=== PATIENT | female | born 1930 | race Asian ===

== ENCOUNTER 2016-04-15 08:15 | Inpatient (IN) | payer MEDICARE, OTHER ==
[~2016-04-15] VITALS: Ht 160 cm; Wt 55.4 kg
[~2016-04-15 08:15] MED LIST: ASPI-825 PO; BENZ-26 PO; DICL1OS OU; DSS100 PO; FISH OIL OMEGA1 EACH PO; FURO20 PO; HYDR50 PO; LEVO250 PO; LEVO75 PO; METF500T4 PO; MOME13HF2 IH; MONT10TA21 PO; PANT40TA25 PO
[2016-04-15 08:42] LABS: BASOPHILS % (AUTO) 0.4 % (0.0-2.0); EOSINOPHILS % (AUTO) 1.8 % (1.0-6.0); HEMATOCRIT 35.1 % (36-46); HEMOGLOBIN 10.8 g/dL (12.0-16.0); LYMPHOCYTES # (AUTO) 1.7 K/uL (1.0-4.8); LYMPHOCYTES % (AUTO) 21.3 % (22.0-44.0); MEAN CORPUSCULAR HEMOGLOBIN 22.3 pg (26.0-34.0); MEAN CORPUSCULAR HGB CONC 30.8 G/dL (31.0-37.0); MEAN CORPUSCULAR VOLUME 73 fL (80-100); MONOCYTES # (AUTO) 0.9 K/uL (0.1-1.0); NEUTROPHILS # (AUTO) 5.3 K/uL (1.8-7.7); NEUTROPHILS % (AUTO) 65.5 % (40.0-70.0); PLATELET COUNT (AUTO) 204 K/uL (150-450); RED BLOOD CELL COUNT(AUTO) 4.84 MIL/uL (4.00-5.20); RED CELL DISTRIBUTION WIDTH 14.6 % (11.5-14.5); WHITE BLOOD COUNT (AUTO) 8.2 K/uL (4.5-11.0)
[2016-04-15 08:52] LABS: PROTHROMBIN TIME 10.2 SEC (9.4-11.6)
[2016-04-15 08:59] LABS: ANION GAP 9 mmol/L (8-16); CALCIUM, TOTAL 9.2 mg/dL (8.8-10.5); CARBON DIOXIDE 31 mmol/L (22-29); CHLORIDE 95 mmol/L (98-107); CREATININE 1.32 mg/dL (0.60-1.30); GLOMERULAR FILTR. RATE CALC 38 mL/min (>60); POTASSIUM 4.2 mmol/L (3.5-5.1); SODIUM SERUM 135 mmol/L (136-145); UREA NITROGEN, BLOOD 25 mg/dL (7-18)
[2016-04-15 09:17] LABS: B-TYPE NATRIURETIC PEPTIDE 440 pg/mL (0-100)
[2016-04-15 09:23] LABS: ALANINE AMINOTRANSFERASE 15 U/L (12-78); ALBUMIN 3.5 g/dL (3.4-5.0); ASPARTATE AMINOTRANSFERASE 19 U/L (15-37); BILIRUBIN,TOTAL 0.4 mg/dL (0.1-1.0); CREATINE KINASE MB 1.4 ng/mL (0-5); CREATINE KINASE, TOTAL 81 U/L (26-192); TOTAL PROTEIN, SERUM 7.7 g/dL (6.4-8.2)
[2016-04-15 09:36] LABS: APPEARANCE,URINE CLEAR (CLEAR); GLUCOSE, URINE (UA) 250 mg/dL (NEGATIVE); KETONES,URINE NEGATIVE (NEGATIVE); LEUKOCYTE ESTERASE ,URINE NEGATIVE (NEGATIVE); OCCULT BLOOD,URINE NEGATIVE (NEGATIVE); PH,URINE 6.5 (5.0-8.0); PROTEIN,URINE POS 1+ (NEGATIVE)
[2016-04-15 09:39] LABS: ADD UA MICROSCOPIC YES
[2016-04-15 09:47] LABS: RBC,URINE None Seen /HPF (0-2); TRANSITIONAL EPI CELLS,URINE Rare /LPF (None Seen); WBC,URINE 0-2 /HPF (0-5)
[2016-04-15 09:48] LABS: SQUAMOUS EPITHELIAL CELL,UR Rare /LPF (None Seen)
[2016-04-15] MEDS ORDERED: INSULIN REGULAR, HUMAN 100 UNITS/ML SQ ONE (12:00)
[2016-04-15] MEDS ORDERED: HydrALAZINE HCL 25 MG TABLET PO ONE (13:15)
[2016-04-15] MEDS ORDERED: NITROGLYCERIN 2% (1 GM=INCH) PACKET TP ONE (15:45)
[2016-04-15] MEDS ORDERED: CloNIDine HCL 0.2 MG TABLET PO ONE (15:45)
[2016-04-15 17:26] LABS: GLUCOSE,POINT OF CARE 187 MG/DL (70-110)
[2016-04-15] MEDS ORDERED: ACETAMINOPHEN 325 MG TABLET PO PRN (18:30)
[2016-04-15] MEDS ORDERED: ALBUTEROL SULFATE 2.5 MG/0.5 ML NEB SOLUTION NEB PRN (18:30)
[2016-04-15] MEDS ORDERED: ZOLPIDEM TARTRATE 5 MG TABLET PO PRN (18:30)
[2016-04-15] MEDS ORDERED: DEXTROSE 50%-WATER 25 GM/50 ML SYRINGE IVP PRN (18:30)
[2016-04-15] MEDS: HydrALAZINE HCL 20 MG/ML VIAL IVP PRN (18:37)
[2016-04-15] MEDS: ALBUTEROL SULFATE 2.5 MG/0.5 ML NEB SOLUTION NEB SCH (20:00)
[2016-04-15 20:16] VITALS: BP 180/58
[2016-04-15] MEDS: GuaiFENesin/D-METHORPHAN [SUGAR-FREE] 200-20MG/10 ML SYRUP UDCUP PO PRN (23:30)
[2016-04-16] VITALS (7 sets, daily range): BP systolic 134–197; BP diastolic 48–76
[2016-04-16] MEDS: HEPARIN SODIUM,PORCINE 5,000 UNITS/ML VIAL SQ SCH ×3 (00:02→16:00)
[2016-04-16] MEDS: INSULIN ASPART 100 UNITS/ML SQ PRN ×5 (00:04→23:02)
[2016-04-16] MEDS: HydrALAZINE HCL 20 MG/ML VIAL IVP PRN ×2 (00:41→06:05)
[2016-04-16] MEDS: OxyCODONE HCL/ACETAMINOPHEN 5-325 MG TABLET PO PRN ×3 (01:14→22:49)
[2016-04-16] MEDS ORDERED: 0.9% SODIUM CHLORIDE 5 ML NEB SOLUTION NEB ONE ×3 (05:03→20:16)
[2016-04-16] MEDS: ALBUTEROL SULFATE 2.5 MG/0.5 ML NEB SOLUTION NEB SCH ×4 (05:10→20:21)
[2016-04-16] MEDS: LEVOTHYROXINE SODIUM 75 MCG TABLET PO SCH (06:05)
[2016-04-16] MEDS: ONDANSETRON HCL 4 MG/2 ML VIAL IVP PRN ×2 (06:35→11:35)
[2016-04-16] MEDS ORDERED: ASPIRIN 81 MG CHEWABLE TABLET PO SCH (09:00)
[2016-04-16 09:48] LABS: BASOPHILS # (AUTO) 0.01 K/uL (0.00-0.20); BASOPHILS % (AUTO) 0.1 % (0.0-2.0); EOSINOPHILS # (AUTO) 0.02 K/uL (0.00-0.70); EOSINOPHILS % (AUTO) 0.13 % (1.0-6.0); HEMATOCRIT 35.7 % (36-46); HEMOGLOBIN 11.4 g/dL (12.0-16.0); LYMPHOCYTES # (AUTO) 0.6 K/uL (1.0-4.8); LYMPHOCYTES % (AUTO) 3.8 % (22.0-44.0); MEAN CORPUSCULAR HEMOGLOBIN 22.7 pg (26.0-34.0); MEAN CORPUSCULAR VOLUME 71 fL (80-100); MONOCYTES # (AUTO) 1.3 K/uL (0.1-1.0); MONOCYTES % (AUTO) 7.7 % (2.0-9.0); PLATELET COUNT (AUTO) 234 K/uL (150-450); RED BLOOD CELL COUNT(AUTO) 5.03 MIL/uL (4.00-5.20); RED CELL DISTRIBUTION WIDTH 15.4 % (11.5-14.5)
[2016-04-16 09:50] LABS: NEUTROPHILS % (AUTO) 88.3 % (40.0-70.0)
[2016-04-16 09:59] LABS: CALCIUM, TOTAL 9.5 mg/dL (8.8-10.5); CREATININE 1.41 mg/dL (0.60-1.30); POTASSIUM 3.4 mmol/L (3.5-5.1)
[2016-04-16 10:16] LABS: RBC MORPHOLOGY COMMENT ABNORMAL RBC MORPH
[2016-04-16] MEDS: FUROSEMIDE 20 MG TABLET PO SCH (12:45)
[2016-04-16] MEDS: MetFORMIN HCL 500 MG TABLET PO SCH ×2 (12:45→18:26)
[2016-04-16] MEDS: DOCUSATE SODIUM 100 MG CAPSULE PO SCH ×2 (12:45→21:09)
[2016-04-16] MEDS: HydrALAZINE HCL 50 MG TABLET PO SCH ×3 (12:45→21:09)
[2016-04-16] MEDS: MONTELUKAST SODIUM 10 MG TABLET PO SCH (12:46)
[2016-04-16] MEDS: PANTOPRAZOLE SODIUM 40 MG DR TABLET PO SCH (12:46)
[2016-04-16] MEDS ORDERED: POTASSIUM CHLORIDE 20 MEQ ER TABLET PO PRN (13:45)
[2016-04-16] MEDS ORDERED: POTASSIUM CHL 10 MEQ/WATER 50 ML IV PRN (13:45)
[2016-04-16] MEDS ORDERED: PROMETHAZINE HCL 25 MG TABLET PO PRN (13:45)
[2016-04-16] MEDS ORDERED: DILTIAZEM HCL 5 MG/ML 5 ML VIAL IVP ONE (14:15)
[2016-04-16] MEDS: SODIUM CHLORIDE 0.9% 1,000 ML IV SCH (14:35)
[2016-04-16] MEDS ORDERED: DIGOXIN 250 MCG/ML 2 ML AMP IVP ONE (17:45)
[2016-04-16] MEDS ORDERED: AMIODARONE HCL 150 MG in DEXTROSE 5%-WATER 97 ML IV ONE (17:45)
[2016-04-16] MEDS ORDERED: AMIODARONE HCL 360 MG in DEXTROSE 5%-WATER 242.8 ML IV ONE (17:45)
[2016-04-16] MEDS ORDERED: AMIODARONE HCL 540 MG in DEXTROSE 5%-WATER 239.2 ML IV ONE (23:45)
[2016-04-17] VITALS (8 sets, daily range): BP systolic 148–198; BP diastolic 56–99
[2016-04-17] MEDS: HEPARIN SODIUM,PORCINE 5,000 UNITS/ML VIAL SQ SCH ×2 (00:02→08:40)
[2016-04-17] MEDS ORDERED: 0.9% SODIUM CHLORIDE 5 ML NEB SOLUTION NEB ONE ×4 (02:09→19:08)
[2016-04-17] MEDS: ALBUTEROL SULFATE 2.5 MG/0.5 ML NEB SOLUTION NEB SCH ×4 (02:14→20:00)
[2016-04-17] MEDS: SODIUM CHLORIDE 0.9% 1,000 ML IV SCH ×2 (04:37→16:33)
[2016-04-17 05:47] LABS: GLUCOSE COMMENT 1 Received Meds; GLUCOSE,POINT OF CARE 347 MG/DL (70-110)
[2016-04-17 05:48] LABS: GLUCOSE COMMENT 1 Received Meds; GLUCOSE,POINT OF CARE 279 MG/DL (70-110)
[2016-04-17 05:48] LABS: GLUCOSE COMMENT 1 Received Meds; GLUCOSE,POINT OF CARE 382 MG/DL (70-110)
[2016-04-17 05:48] LABS: GLUCOSE,POINT OF CARE 256 MG/DL (70-110)
[2016-04-17] MEDS: LEVOTHYROXINE SODIUM 75 MCG TABLET PO SCH (05:54)
[2016-04-17] MEDS: INSULIN ASPART 100 UNITS/ML SQ PRN ×4 (05:57→21:00)
[2016-04-17] MEDS: HydrALAZINE HCL 20 MG/ML VIAL IVP PRN ×2 (05:58→12:23)
[2016-04-17 07:10] LABS: ALBUMIN 2.9 g/dL (3.4-5.0); BILIRUBIN,TOTAL 0.6 mg/dL (0.1-1.0); CREATININE 1.04 mg/dL (0.60-1.30); TOTAL PROTEIN, SERUM 6.3 g/dL (6.4-8.2)
[2016-04-17] MEDS: MetFORMIN HCL 500 MG TABLET PO SCH ×2 (08:35→18:35)
[2016-04-17] MEDS: HydrALAZINE HCL 50 MG TABLET PO SCH ×3 (08:37→20:55)
[2016-04-17] MEDS: PANTOPRAZOLE SODIUM 40 MG DR TABLET PO SCH (08:38)
[2016-04-17] MEDS: DOCUSATE SODIUM 100 MG CAPSULE PO SCH ×2 (08:38→20:55)
[2016-04-17] MEDS: MONTELUKAST SODIUM 10 MG TABLET PO SCH (08:38)
[2016-04-17] MEDS: FUROSEMIDE 20 MG TABLET PO SCH (08:38)
[2016-04-17] MEDS: OxyCODONE HCL/ACETAMINOPHEN 5-325 MG TABLET PO PRN (10:12)
[2016-04-17] MEDS: APIXABAN 2.5 MG TABLET PO SCH ×2 (12:23→20:55)
[2016-04-17 15:27] LABS: GLUCOSE COMMENT 1 Received Meds; GLUCOSE,POINT OF CARE 279 MG/DL (70-110)
[2016-04-17] MEDS ORDERED: AMIODARONE HCL 750 MG in DEXTROSE 5%-WATER 485 ML IV SCH (18:00)
[2016-04-17] MEDS: METOPROLOL SUCCINATE 25 MG ER TABLET PO SCH (18:34)
[2016-04-17] MEDS: NAPHAZOLINE/PHENIR 0.025-0.3% 15 ML OPHTHALMIC SOLUTION OU PRN (18:36)
[2016-04-17] MEDS: AMIODARONE HCL 200 MG TABLET PO SCH (20:55)
[2016-04-17] MEDS: AmLODIPine BESYLATE 5 MG TABLET PO SCH (20:55)
[2016-04-17 22:42] LABS: GLUCOSE COMMENT 1 Received Meds; GLUCOSE,POINT OF CARE 283 MG/DL (70-110)
[2016-04-18] MEDS: ALBUTEROL SULFATE 2.5 MG/0.5 ML NEB SOLUTION NEB SCH ×4 (02:00→19:34)
[2016-04-18] MEDS ORDERED: 0.9% SODIUM CHLORIDE 5 ML NEB SOLUTION NEB ONE ×2 (02:27→19:31)
[2016-04-18 04:17] VITALS: BP 157/70
[2016-04-18] MEDS: OxyCODONE HCL/ACETAMINOPHEN 5-325 MG TABLET PO PRN (04:19)
[2016-04-18] MEDS: ONDANSETRON HCL 4 MG/2 ML VIAL IVP PRN (04:25)
[2016-04-18] MEDS: SODIUM CHLORIDE 0.9% 1,000 ML IV SCH ×2 (05:33→20:52)
[2016-04-18] MEDS: LEVOTHYROXINE SODIUM 75 MCG TABLET PO SCH (06:12)
[2016-04-18] MEDS: INSULIN ASPART 100 UNITS/ML SQ PRN ×4 (06:16→20:58)
[2016-04-18 06:53] LABS: BASOPHILS # (AUTO) 0.02 K/uL (0.00-0.20); BASOPHILS % (AUTO) 0.2 % (0.0-2.0); EOSINOPHILS # (AUTO) 0.09 K/uL (0.00-0.70); EOSINOPHILS % (AUTO) 0.68 % (1.0-6.0); HEMATOCRIT 33.4 % (36-46); HEMOGLOBIN 10.6 g/dL (12.0-16.0); LYMPHOCYTES # (AUTO) 0.8 K/uL (1.0-4.8); LYMPHOCYTES % (AUTO) 5.7 % (22.0-44.0); MEAN CORPUSCULAR HGB CONC 31.9 G/dL (31.0-37.0); MEAN CORPUSCULAR VOLUME 72 fL (80-100); MONOCYTES # (AUTO) 1.2 K/uL (0.1-1.0); NEUTROPHILS # (AUTO) 11.1 K/uL (1.8-7.7); NEUTROPHILS % (AUTO) 84.4 % (40.0-70.0); PLATELET COUNT (AUTO) 214 K/uL (150-450); RED BLOOD CELL COUNT(AUTO) 4.63 MIL/uL (4.00-5.20); RED CELL DISTRIBUTION WIDTH 15.1 % (11.5-14.5); WHITE BLOOD COUNT (AUTO) 13.1 K/uL (4.5-11.0)
[2016-04-18 07:01] LABS: RBC MORPHOLOGY COMMENT ABNORMAL RBC MORPH
[2016-04-18 07:06] LABS: CALCIUM, TOTAL 8.3 mg/dL (8.8-10.5); CREATININE 1.02 mg/dL (0.60-1.30); POTASSIUM 4.1 mmol/L (3.5-5.1)
[2016-04-18 07:36] LABS: GLUCOSE COMMENT 1 Received Meds; GLUCOSE,POINT OF CARE 268 MG/DL (70-110)
[2016-04-18 07:44] VITALS: BP 146/59
[2016-04-18] MEDS: MetFORMIN HCL 500 MG TABLET PO SCH ×2 (10:03→17:26)
[2016-04-18] MEDS: DOCUSATE SODIUM 100 MG CAPSULE PO SCH ×2 (10:03→20:52)
[2016-04-18] MEDS: MONTELUKAST SODIUM 10 MG TABLET PO SCH (10:03)
[2016-04-18] MEDS: PANTOPRAZOLE SODIUM 40 MG DR TABLET PO SCH (10:04)
[2016-04-18] MEDS: FUROSEMIDE 20 MG TABLET PO SCH (10:04)
[2016-04-18] MEDS: AMIODARONE HCL 200 MG TABLET PO SCH ×3 (10:04→20:53)
[2016-04-18] MEDS: METOPROLOL SUCCINATE 25 MG ER TABLET PO SCH (10:04)
[2016-04-18] MEDS: APIXABAN 2.5 MG TABLET PO SCH ×2 (10:04→20:52)
[2016-04-18 11:53] VITALS: BP 163/75
[2016-04-18] MEDS: AmLODIPine BESYLATE 5 MG TABLET PO SCH ×2 (13:00→20:53)
[2016-04-18] MEDS: HydrALAZINE HCL 50 MG TABLET PO SCH ×3 (13:00→20:52)
[2016-04-18 16:04] VITALS: BP 166/68
[2016-04-18 20:05] VITALS: BP 147/61
[2016-04-18 23:02] VITALS: BP 155/51
[2016-04-19] MEDS: OxyCODONE HCL/ACETAMINOPHEN 5-325 MG TABLET PO PRN (02:06)
[2016-04-19] MEDS: ALBUTEROL SULFATE 2.5 MG/0.5 ML NEB SOLUTION NEB SCH ×3 (02:22→13:22)
[2016-04-19] MEDS ORDERED: 0.9% SODIUM CHLORIDE 5 ML NEB SOLUTION NEB ONE ×3 (02:23→13:14)
[2016-04-19 05:09] VITALS: BP 185/82
[2016-04-19] MEDS: ONDANSETRON HCL 4 MG/2 ML VIAL IVP PRN (05:13)
[2016-04-19] MEDS: HydrALAZINE HCL 20 MG/ML VIAL IVP PRN (05:14)
[2016-04-19] MEDS: NAPHAZOLINE/PHENIR 0.025-0.3% 15 ML OPHTHALMIC SOLUTION OU PRN ×2 (05:21→08:45)
[2016-04-19] MEDS: LEVOTHYROXINE SODIUM 75 MCG TABLET PO SCH (05:23)
[2016-04-19 06:17] VITALS: BP 147/58
[2016-04-19] MEDS: INSULIN ASPART 100 UNITS/ML SQ PRN ×3 (06:27→18:15)
[2016-04-19 07:15] VITALS: BP 133/61
[2016-04-19 07:16] LABS: BASOPHILS % (AUTO) 0.4 % (0.0-2.0); EOSINOPHILS % (AUTO) 1.1 % (1.0-6.0); HEMATOCRIT 33.3 % (36-46); HEMOGLOBIN 10.1 g/dL (12.0-16.0); LYMPHOCYTES # (AUTO) 1.5 K/uL (1.0-4.8); LYMPHOCYTES % (AUTO) 13.8 % (22.0-44.0); MEAN CORPUSCULAR HEMOGLOBIN 22.1 pg (26.0-34.0); MEAN CORPUSCULAR HGB CONC 30.4 G/dL (31.0-37.0); MEAN CORPUSCULAR VOLUME 73 fL (80-100); MONOCYTES # (AUTO) 1.2 K/uL (0.1-1.0); MONOCYTES % (AUTO) 11.1 % (2.0-9.0); NEUTROPHILS # (AUTO) 7.9 K/uL (1.8-7.7); NEUTROPHILS % (AUTO) 73.6 % (40.0-70.0); PLATELET COUNT (AUTO) 215 K/uL (150-450); RED BLOOD CELL COUNT(AUTO) 4.58 MIL/uL (4.00-5.20); RED CELL DISTRIBUTION WIDTH 14.3 % (11.5-14.5); WHITE BLOOD COUNT (AUTO) 10.7 K/uL (4.5-11.0)
[2016-04-19 07:21] LABS: GLUCOSE COMMENT 1 Received Meds; GLUCOSE,POINT OF CARE 192 MG/DL (70-110)
[2016-04-19 07:27] LABS: GLUCOSE,POINT OF CARE 225 MG/DL (70-110)
[2016-04-19 07:40] LABS: CALCIUM, TOTAL 8.1 mg/dL (8.8-10.5); POTASSIUM 3.7 mmol/L (3.5-5.1)
[2016-04-19] MEDS: AmLODIPine BESYLATE 5 MG TABLET PO SCH (08:43)
[2016-04-19] MEDS: MONTELUKAST SODIUM 10 MG TABLET PO SCH (08:43)
[2016-04-19] MEDS: APIXABAN 2.5 MG TABLET PO SCH (08:43)
[2016-04-19] MEDS: MetFORMIN HCL 500 MG TABLET PO SCH ×2 (08:43→17:58)
[2016-04-19] MEDS: HydrALAZINE HCL 50 MG TABLET PO SCH ×2 (08:43→17:58)
[2016-04-19] MEDS: FUROSEMIDE 20 MG TABLET PO SCH (08:44)
[2016-04-19] MEDS: DOCUSATE SODIUM 100 MG CAPSULE PO SCH (08:44)
[2016-04-19] MEDS: METOPROLOL SUCCINATE 25 MG ER TABLET PO SCH (08:44)
[2016-04-19] MEDS: AMIODARONE HCL 200 MG TABLET PO SCH ×2 (08:45→17:58)
[2016-04-19] MEDS: PANTOPRAZOLE SODIUM 40 MG DR TABLET PO SCH (08:45)
[2016-04-19] MEDS: GuaiFENesin/D-METHORPHAN [SUGAR-FREE] 200-20MG/10 ML SYRUP UDCUP PO PRN ×2 (08:45→11:21)
[2016-04-19 10:32] LABS: RBC MORPHOLOGY COMMENT ABNORMAL RBC MORPH
[2016-04-19] MEDS ORDERED: SODIUM CHLORIDE 0.9% 500 ML IV ONE (11:17)
[2016-04-19] MEDS: SODIUM CHLORIDE 0.9% 1,000 ML IV SCH (11:23)
[2016-04-19 11:45] VITALS: BP 166/62
[2016-04-19 11:57] LABS: GLUCOSE COMMENT 1 Received Meds; GLUCOSE,POINT OF CARE 271 MG/DL (70-110)
[2016-04-19 11:58] LABS: GLUCOSE COMMENT 1 Received Meds; GLUCOSE,POINT OF CARE 252 MG/DL (70-110)
[2016-04-19 11:59] LABS: GLUCOSE,POINT OF CARE 182 MG/DL (70-110)
[2016-04-19 11:59] LABS: GLUCOSE,POINT OF CARE 222 MG/DL (70-110)
[2016-04-19 11:59] LABS: GLUCOSE COMMENT 1 Received Meds; GLUCOSE,POINT OF CARE 354 MG/DL (70-110)
[2016-04-19 12:03] LABS: GLUCOSE,POINT OF CARE 246 MG/DL (70-110)
[2016-04-19 12:03] LABS: GLUCOSE COMMENT 1 Received Meds; GLUCOSE,POINT OF CARE 266 MG/DL (70-110)
[2016-04-19 15:34] VITALS: BP 154/58
[2016-04-19 18:32] LABS: GLUCOSE COMMENT 1 Received Meds; GLUCOSE,POINT OF CARE 251 MG/DL (70-110)
[2016-04-24 15:22] LABS: GLUCOSE,POINT OF CARE 284 MG/DL (70-110)
== END 2016-04-19 18:50 | DRG 74 ==
LOC: EMS 08:17 → 5N 17:16
PROVIDERS: ADMIT Hospitalist; ATTEND Hospitalist
DX: G90.8 Other disorders of autonomic nervous system (principal); J44.9 Chronic obstructive pulmonary disease, unspecified; I48.91 Unspecified atrial fibrillation; D64.9 Anemia, unspecified; E03.9 Hypothyroidism, unspecified; E78.5 Hyperlipidemia, unspecified; F41.9 Anxiety disorder, unspecified; N18.3 Chronic kidney disease, stage 3 (moderate); E11.22 Type 2 diabetes mellitus with diabetic chronic kidney disease; I12.9 Hypertensive chronic kidney disease with stage 1 through stage 4 chronic kidney disease, or unspecified chronic kidney disease; B35.9 Dermatophytosis, unspecified; Z88.6 Allergy status to analgesic agent; Z88.0 Allergy status to penicillin; Z91.013 Allergy to seafood; Z79.899 Other long term (current) drug therapy; Z79.2 Long term (current) use of antibiotics; Z79.82 Long term (current) use of aspirin; Z90.49 Acquired absence of other specified parts of digestive tract; Z90.710 Acquired absence of both cervix and uterus; Z98.890 Other specified postprocedural states; Z90.722 Acquired absence of ovaries, bilateral; Z87.01 Personal history of pneumonia (recurrent)
CPT/HCPCS: 70450; 82962; 93005; 93306; 93880; 94640; 96372; 97162; 97165; 97535; 99285; J0282; J0360; J1160; J1644; J1815; J2405; J3480; J3490; J7030; J7040; J7060

== ENCOUNTER 2016-04-26 03:38 | Inpatient (IN) | payer MEDICARE, OTHER ==
[~2016-04-26] VITALS: Ht 165.1 cm; Wt 55.6 kg
[2016-04-26] MEDS ORDERED: METO-323 PO (03:46)
[2016-04-26] MEDS ORDERED: AMIO200T44 PO (03:46)
[2016-04-26] MEDS ORDERED: APIX2.5T PO (03:46)
[2016-04-26] MEDS ORDERED: AMLO-511 PO (03:46)
[2016-04-26] MEDS ORDERED: AUD NEB (03:46)
[2016-04-26 04:17] LABS: BASOPHILS # (AUTO) 0.02 K/uL (0.00-0.20); BASOPHILS % (AUTO) 0.1 % (0.0-2.0); EOSINOPHILS # (AUTO) 0.04 K/uL (0.00-0.70); EOSINOPHILS % (AUTO) 0.19 % (1.0-6.0); HEMOGLOBIN 10.9 g/dL (12.0-16.0); LYMPHOCYTES # (AUTO) 0.8 K/uL (1.0-4.8); LYMPHOCYTES % (AUTO) 3.9 % (22.0-44.0); MEAN CORPUSCULAR HEMOGLOBIN 22.7 pg (26.0-34.0); MEAN CORPUSCULAR VOLUME 71 fL (80-100); MONOCYTES # (AUTO) 1.2 K/uL (0.1-1.0); MONOCYTES % (AUTO) 6.3 % (2.0-9.0); NEUTROPHILS # (AUTO) 17.6 K/uL (1.8-7.7); PLATELET COUNT (AUTO) 287 K/uL (150-450); RED BLOOD CELL COUNT(AUTO) 4.79 MIL/uL (4.00-5.20); RED CELL DISTRIBUTION WIDTH 14.8 % (11.5-14.5); WHITE BLOOD COUNT (AUTO) 19.7 K/uL (4.5-11.0)
[2016-04-26 04:18] LABS: NEUTROPHILS % (AUTO) 89.5 % (40.0-70.0)
[2016-04-26 04:22] LABS: PROTHROMBIN TIME 10.4 SEC (9.4-11.6)
[2016-04-26 04:29] LABS: ALANINE AMINOTRANSFERASE 16 U/L (12-78); ALBUMIN 3.1 g/dL (3.4-5.0); ANION GAP 10 mmol/L (8-16); ASPARTATE AMINOTRANSFERASE 16 U/L (15-37); BILIRUBIN,TOTAL 0.5 mg/dL (0.1-1.0); CALCIUM, TOTAL 8.9 mg/dL (8.8-10.5); CARBON DIOXIDE 29 mmol/L (22-29); CHLORIDE 85 mmol/L (98-107); CREATINE KINASE, TOTAL 53 U/L (26-192); GLOMERULAR FILTR. RATE CALC 52 mL/min (>60); POTASSIUM 4.4 mmol/L (3.5-5.1); TOTAL PROTEIN, SERUM 7.7 g/dL (6.4-8.2); UREA NITROGEN, BLOOD 12 mg/dL (7-18)
[2016-04-26 04:31] LABS: SODIUM SERUM 124 mmol/L (136-145)
[2016-04-26 04:41] LABS: B-TYPE NATRIURETIC PEPTIDE 777 pg/mL (0-100)
[2016-04-26 04:43] LABS: RBC MORPHOLOGY COMMENT ABNORMAL RBC MORPH
[2016-04-26 04:44] LABS: APPEARANCE,URINE CLOUDY (CLEAR); GLUCOSE, URINE (UA) >=1000 mg/dL (NEGATIVE); KETONES,URINE TRACE mg/dL (NEGATIVE); LEUKOCYTE ESTERASE ,URINE SMALL (NEGATIVE); OCCULT BLOOD,URINE SMALL (NEGATIVE); PH,URINE 7.5 (5.0-8.0); PROTEIN,URINE SEE CONFIRM (NEGATIVE)
[2016-04-26 04:46] LABS: ADD UA MICROSCOPIC YES
[2016-04-26 05:01] LABS: SQUAMOUS EPITHELIAL CELL,UR Few /LPF (None Seen); SULFOSALICYLIC ACID,URINE 3+ (Negative)
[2016-04-26] MEDS ORDERED: SODIUM CHLORIDE 0.9% 1,000 ML IV ONE (05:45)
[2016-04-26] MEDS ORDERED: FUROSEMIDE 40 MG/4 ML VIAL IVP ONE (06:45)
[2016-04-26] MEDS ORDERED: CefTRIAXone 1 GM/DEXTROSE 50 ML IV ONE (06:45)
[2016-04-26] MEDS ORDERED: LEVOFLOXACIN 500 MG/D5% WATER 100 ML IV ONE (06:45)
[2016-04-26] MEDS ORDERED: ONDANSETRON HCL 4 MG/2 ML VIAL IVP PRN (07:30)
[2016-04-26] MEDS ORDERED: MORPHINE SULFATE 4 MG/ML SYRINGE IVP PRN (07:30)
[2016-04-26] MEDS ORDERED: ALBUTEROL SULFATE 2.5 MG/0.5 ML NEB SOLUTION NEB PRN (12:45)
[2016-04-26] MEDS ORDERED: BISACODYL 10 MG RECTAL RECTAL SUPPOSITORY PR PRN (12:45)
[2016-04-26] MEDS ORDERED: DEXTROSE 50%-WATER 25 GM/50 ML SYRINGE IVP PRN (12:45)
[2016-04-26 12:56] VITALS: BP 153/47
[2016-04-26] MEDS ORDERED: MAGNESIUM HYDROXIDE SUSPENSION 30 ML UDCUP PO PRN (13:00)
[2016-04-26] MEDS ORDERED: *CLINICAL-RX DOSING [ENTER DRUG IN COMMENTS] CLINICAL ONE (13:15)
[2016-04-26] MEDS: INSULIN ASPART 100 UNITS/ML SQ PRN ×3 (13:18→21:35)
[2016-04-26] MEDS: FUROSEMIDE 20 MG/2 ML VIAL IVP SCH (13:19)
[2016-04-26 15:23] VITALS: BP 139/59
[2016-04-26] MEDS ORDERED: INSNOV SQ (16:00)
[2016-04-26] MEDS: METOPROLOL SUCCINATE 50 MG ER TABLET PO SCH (16:10)
[2016-04-26] MEDS ORDERED: SODIUM CHLORIDE 0.9% 100 ML ONE (17:04)
[2016-04-26] MEDS: CefoTEtan DISOD 1 GM/DEXTROSE 50 ML IV SCH (17:06)
[2016-04-26 17:56] LABS: GLUCOSE COMMENT 1 Received Meds; GLUCOSE,POINT OF CARE 316 MG/DL (70-110)
[2016-04-26 19:33] VITALS: BP 169/64
[2016-04-26] MEDS: OXYGEN THERAPY IH SCH (20:12)
[2016-04-26] MEDS: APIXABAN 2.5 MG TABLET PO SCH (20:12)
[2016-04-26] MEDS: DOCUSATE SODIUM 100 MG CAPSULE PO SCH (20:12)
[2016-04-26] MEDS ORDERED: HEPARIN SODIUM,PORCINE 5,000 UNITS/ML VIAL SQ SCH (21:00)
[2016-04-26] MEDS: ACETAMINOPHEN 325 MG TABLET PO PRN (21:33)
[2016-04-26 23:34] VITALS: BP 163/57
[2016-04-27 04:02] VITALS: BP 166/61
[2016-04-27] MEDS: CefoTEtan DISOD 1 GM/DEXTROSE 50 ML IV SCH ×2 (05:54→16:24)
[2016-04-27] MEDS: INSULIN ASPART 100 UNITS/ML SQ PRN ×4 (05:58→21:05)
[2016-04-27 07:43] VITALS: BP 180/64
[2016-04-27] MEDS: FUROSEMIDE 20 MG/2 ML VIAL IVP SCH (09:00)
[2016-04-27] MEDS: APIXABAN 2.5 MG TABLET PO SCH ×2 (09:01→21:00)
[2016-04-27] MEDS: OXYGEN THERAPY IH SCH ×2 (09:01→21:00)
[2016-04-27] MEDS: DOCUSATE SODIUM 100 MG CAPSULE PO SCH ×2 (09:01→21:00)
[2016-04-27] MEDS: PANTOPRAZOLE SODIUM 40 MG DR TABLET PO SCH (09:01)
[2016-04-27] MEDS: METOPROLOL SUCCINATE 50 MG ER TABLET PO SCH (09:01)
[2016-04-27 09:17] LABS: EOSINOPHILS % (AUTO) 0.6 % (1.0-6.0); HEMATOCRIT 32.1 % (36-46); HEMOGLOBIN 9.9 g/dL (12.0-16.0); LYMPHOCYTES # (AUTO) 0.6 K/uL (1.0-4.8); LYMPHOCYTES % (AUTO) 5.6 % (22.0-44.0); MEAN CORPUSCULAR HEMOGLOBIN 22.4 pg (26.0-34.0); MEAN CORPUSCULAR HGB CONC 30.9 G/dL (31.0-37.0); MEAN CORPUSCULAR VOLUME 72 fL (80-100); MONOCYTES # (AUTO) 0.9 K/uL (0.1-1.0); MONOCYTES % (AUTO) 8.3 % (2.0-9.0); NEUTROPHILS # (AUTO) 9.2 K/uL (1.8-7.7); NEUTROPHILS % (AUTO) 85.5 % (40.0-70.0); PLATELET COUNT (AUTO) 280 K/uL (150-450); RED BLOOD CELL COUNT(AUTO) 4.44 MIL/uL (4.00-5.20); RED CELL DISTRIBUTION WIDTH 14.5 % (11.5-14.5); WHITE BLOOD COUNT (AUTO) 10.8 K/uL (4.5-11.0)
[2016-04-27 09:32] LABS: CALCIUM, TOTAL 7.9 mg/dL (8.8-10.5); CREATININE 1.02 mg/dL (0.60-1.30); POTASSIUM 4.4 mmol/L (3.5-5.1)
[2016-04-27 10:18] LABS: RBC MORPHOLOGY COMMENT ABNORMAL RBC MORPH
[2016-04-27 10:56] VITALS: BP 143/56
[2016-04-27 11:51] LABS: GLUCOSE COMMENT 1 Received Meds; GLUCOSE,POINT OF CARE 202 MG/DL (70-110)
[2016-04-27 14:57] VITALS: BP 165/80
[2016-04-27] MEDS: SODIUM CHLORIDE 1 GM TABLET PO SCH ×2 (15:31→21:00)
[2016-04-27] MEDS: HYPROMELLOSE 0.5% 15 ML OPHTHALMIC SOLUTION OU PRN ×2 (15:32→21:00)
[2016-04-27] MEDS: GuaiFENesin/D-METHORPHAN [SUGAR-FREE] 200-20MG/10 ML SYRUP UDCUP PO PRN ×2 (15:32→23:56)
[2016-04-27] MEDS ORDERED: SODIUM CHLORIDE 0.9% 100 ML ONE (16:16)
[2016-04-27 19:44] VITALS: BP 153/54
[2016-04-28] VITALS (7 sets, daily range): BP systolic 144–178; BP diastolic 55–72
[2016-04-28] MEDS: CefoTEtan DISOD 1 GM/DEXTROSE 50 ML IV SCH ×2 (05:06→17:04)
[2016-04-28] MEDS: INSULIN ASPART 100 UNITS/ML SQ PRN ×4 (06:47→20:28)
[2016-04-28 06:52] LABS: CALCIUM, TOTAL 7.2 mg/dL (8.8-10.5); CREATININE 1.13 mg/dL (0.60-1.30); POTASSIUM 4.2 mmol/L (3.5-5.1)
[2016-04-28 06:56] LABS: GLUCOSE COMMENT 1 Received Meds; GLUCOSE,POINT OF CARE 282 MG/DL (70-110)
[2016-04-28] MEDS: OXYGEN THERAPY IH SCH ×2 (08:28→20:25)
[2016-04-28] MEDS: DOCUSATE SODIUM 100 MG CAPSULE PO SCH ×2 (08:28→20:25)
[2016-04-28] MEDS: FUROSEMIDE 20 MG/2 ML VIAL IVP SCH (08:28)
[2016-04-28] MEDS: APIXABAN 2.5 MG TABLET PO SCH ×2 (08:29→20:26)
[2016-04-28] MEDS: SODIUM CHLORIDE 1 GM TABLET PO SCH ×3 (08:29→20:26)
[2016-04-28] MEDS: PANTOPRAZOLE SODIUM 40 MG DR TABLET PO SCH (08:29)
[2016-04-28] MEDS: METOPROLOL SUCCINATE 50 MG ER TABLET PO SCH (08:29)
[2016-04-28] MEDS: HYPROMELLOSE 0.5% 15 ML OPHTHALMIC SOLUTION OU PRN ×2 (08:30→20:38)
[2016-04-28] MEDS: GuaiFENesin/D-METHORPHAN [SUGAR-FREE] 200-20MG/10 ML SYRUP UDCUP PO PRN ×2 (10:13→20:26)
[2016-04-28] MEDS: ACETAMINOPHEN 325 MG TABLET PO PRN (23:52)
[2016-04-29] MEDS: CefoTEtan DISOD 1 GM/DEXTROSE 50 ML IV SCH ×2 (04:23→17:56)
[2016-04-29 04:33] VITALS: BP 174/66
[2016-04-29] MEDS: INSULIN ASPART 100 UNITS/ML SQ PRN ×4 (06:22→21:18)
[2016-04-29 07:24] VITALS: BP 165/50
[2016-04-29] MEDS: OXYGEN THERAPY IH SCH ×2 (08:27→20:00)
[2016-04-29] MEDS: FUROSEMIDE 20 MG/2 ML VIAL IVP SCH (08:27)
[2016-04-29] MEDS: METOPROLOL SUCCINATE 50 MG ER TABLET PO SCH (08:28)
[2016-04-29] MEDS: APIXABAN 2.5 MG TABLET PO SCH ×2 (08:28→21:07)
[2016-04-29] MEDS: DOCUSATE SODIUM 100 MG CAPSULE PO SCH ×2 (08:28→21:07)
[2016-04-29] MEDS: PANTOPRAZOLE SODIUM 40 MG DR TABLET PO SCH (08:28)
[2016-04-29] MEDS: SODIUM CHLORIDE 1 GM TABLET PO SCH ×3 (08:28→21:07)
[2016-04-29 08:50] LABS: CALCIUM, TOTAL 7.7 mg/dL (8.8-10.5); CREATININE 1.08 mg/dL (0.60-1.30); POTASSIUM 4.2 mmol/L (3.5-5.1)
[2016-04-29 11:34] VITALS: BP 157/57
[2016-04-29] MEDS: GuaiFENesin/D-METHORPHAN [SUGAR-FREE] 200-20MG/10 ML SYRUP UDCUP PO PRN (12:09)
[2016-04-29 16:04] VITALS: BP 170/58
[2016-04-29] MEDS: HYPROMELLOSE 0.5% 15 ML OPHTHALMIC SOLUTION OU PRN (16:41)
[2016-04-29] MEDS ORDERED: NACL1 PO ×2 (18:24→18:26)
[2016-04-29] MEDS ORDERED: ACET-2247 PO (18:27)
[2016-04-29] MEDS ORDERED: BISA10S PR (18:34)
[2016-04-29] MEDS ORDERED: GUAIFDM120 PO (18:36)
[2016-04-29] MEDS ORDERED: HYPR15DR23 OU (18:38)
[2016-04-29] MEDS ORDERED: MOM30 PO (18:39)
[2016-04-29 19:26] VITALS: BP 192/75
[2016-04-29] MEDS: ACETAMINOPHEN 325 MG TABLET PO PRN (21:07)
[2016-04-29] MEDS ORDERED: CloNIDine HCL 0.1 MG TABLET PO ONE (22:30)
[2016-04-29 23:32] VITALS: BP 177/77
[2016-04-30] MEDS: GuaiFENesin/D-METHORPHAN [SUGAR-FREE] 200-20MG/10 ML SYRUP UDCUP PO PRN (02:01)
[2016-04-30 04:13] VITALS: BP 166/64
[2016-04-30] MEDS: CefoTEtan DISOD 1 GM/DEXTROSE 50 ML IV SCH (05:06)
[2016-04-30] MEDS ORDERED: SODIUM CHLORIDE 0.9% 100 ML ONE (05:09)
[2016-04-30] MEDS: INSULIN ASPART 100 UNITS/ML SQ PRN ×2 (06:52→14:57)
[2016-04-30 07:22] VITALS: BP 157/58
[2016-04-30 07:52] LABS: GLUCOSE COMMENT 1 Received Meds; GLUCOSE,POINT OF CARE 333 MG/DL (70-110)
[2016-04-30 08:28] LABS: CALCIUM, TOTAL 7.7 mg/dL (8.8-10.5); POTASSIUM 4.2 mmol/L (3.5-5.1)
[2016-04-30] MEDS: FUROSEMIDE 20 MG/2 ML VIAL IVP SCH (08:28)
[2016-04-30] MEDS: PANTOPRAZOLE SODIUM 40 MG DR TABLET PO SCH (08:28)
[2016-04-30] MEDS: DOCUSATE SODIUM 100 MG CAPSULE PO SCH (08:28)
[2016-04-30] MEDS: SODIUM CHLORIDE 1 GM TABLET PO SCH ×2 (08:28→16:19)
[2016-04-30] MEDS: APIXABAN 2.5 MG TABLET PO SCH (08:28)
[2016-04-30] MEDS: METOPROLOL SUCCINATE 50 MG ER TABLET PO SCH (08:28)
[2016-04-30] MEDS: OXYGEN THERAPY IH SCH (08:29)
[2016-04-30 11:47] VITALS: BP 167/66
[2016-04-30] MEDS ORDERED: CloNIDine HCL 0.1 MG TABLET PO ONE ×2 (13:15→15:30)
[2016-04-30 14:57] VITALS: BP 165/65
[2016-04-30] MEDS ORDERED: CloNIDine HCL 0.1 MG TABLET PO PRN (15:30)
[2016-04-30 15:56] VITALS: BP 154/55
[2016-04-30 21:01] LABS: GLUCOSE COMMENT 1 Received Meds; GLUCOSE,POINT OF CARE 321 MG/DL (70-110)
[2016-05-07 06:54] LABS: GLUCOSE COMMENT 1 Received Meds; GLUCOSE,POINT OF CARE 247 MG/DL (70-110)
[2016-05-07 06:54] LABS: GLUCOSE,POINT OF CARE 234 MG/DL (70-110)
[2016-05-07 06:54] LABS: GLUCOSE COMMENT 1 Received Meds; GLUCOSE,POINT OF CARE 219 MG/DL (70-110)
[2016-05-07 06:54] LABS: GLUCOSE COMMENT 1 Received Meds; GLUCOSE,POINT OF CARE 275 MG/DL (70-110)
[2016-05-07 06:54] LABS: GLUCOSE COMMENT 1 Received Meds; GLUCOSE,POINT OF CARE 217 MG/DL (70-110)
[2016-05-07 06:57] LABS: GLUCOSE COMMENT 1 Received Meds; GLUCOSE,POINT OF CARE 286 MG/DL (70-110)
[2016-05-07 06:58] LABS: GLUCOSE,POINT OF CARE 266 MG/DL (70-110)
[2016-05-07 06:58] LABS: GLUCOSE COMMENT 1 Received Meds; GLUCOSE,POINT OF CARE 265 MG/DL (70-110)
[2016-05-07 06:58] LABS: GLUCOSE COMMENT 1 Received Meds; GLUCOSE,POINT OF CARE 398 MG/DL (70-110)
[2016-05-07 06:58] LABS: GLUCOSE COMMENT 1 Received Meds; GLUCOSE,POINT OF CARE 240 MG/DL (70-110)
[2016-05-07 06:58] LABS: GLUCOSE COMMENT 1 Received Meds; GLUCOSE,POINT OF CARE 305 MG/DL (70-110)
[2016-05-07 06:58] LABS: GLUCOSE COMMENT 1 Received Meds; GLUCOSE,POINT OF CARE 241 MG/DL (70-110)
== END 2016-04-30 17:35 | DRG 291 ==
LOC: EMS 03:40 → 5S 11:41
PROVIDERS: ADMIT Internal Medicine; ATTEND Internal Medicine
DX: I50.31 Acute diastolic (congestive) heart failure (principal); E43 Unspecified severe protein-calorie malnutrition; E87.1 Hypo-osmolality and hyponatremia; J44.0 Chronic obstructive pulmonary disease with (acute) lower respiratory infection; I11.0 Hypertensive heart disease with heart failure; I49.5 Sick sinus syndrome; E11.9 Type 2 diabetes mellitus without complications; I48.0 Paroxysmal atrial fibrillation; R62.7 Adult failure to thrive; K21.9 Gastro-esophageal reflux disease without esophagitis; D64.9 Anemia, unspecified; F41.9 Anxiety disorder, unspecified; E03.9 Hypothyroidism, unspecified; Z90.49 Acquired absence of other specified parts of digestive tract; Z90.710 Acquired absence of both cervix and uterus; Z95.0 Presence of cardiac pacemaker; Z68.20 Body mass index [BMI] 20.0-20.9, adult; Z88.8 Allergy status to other drugs, medicaments and biological substances; Z88.6 Allergy status to analgesic agent; Z88.0 Allergy status to penicillin; Z91.013 Allergy to seafood; Z79.4 Long term (current) use of insulin
CPT/HCPCS: 51702; 74176; 82962; 87040; 87081; 93005; 96361; 96365; 96375; 97110; 97116; 97162; 97530; 99285; J0696; J1940; J1956; J3490; J7030; J7050

== ENCOUNTER → 2016-06-28 | Outpatient (CLI) | payer MEDICARE, OTHER ==
[~2016-06-28] MED LIST changes: +ACET-2247 PO; +AMIO200T44 PO; +AMLO-511 PO; +APIX2.5T PO; -ASPI-825 PO; +AUD NEB; -BENZ-26 PO; +BISA10S PR; -DICL1OS OU; -FISH OIL OMEGA1 EACH PO; +GUAIFDM120 PO; +HYPR15DR23 OU; +INSNOV SQ; +METO-323 PO; +MOM30 PO; -MOME13HF2 IH; +NACL1 PO
[2016-06-28 12:41] VITALS: BP 139/61
== END | disposition home or self-care (01) ==
LOC: SRCNTR 12:32
PROVIDERS: ATTEND Internal Medicine Critical Care Medicine
DX: J44.9 Chronic obstructive pulmonary disease, unspecified (principal); I11.0 Hypertensive heart disease with heart failure; I50.9 Heart failure, unspecified; E11.9 Type 2 diabetes mellitus without complications; I49.5 Sick sinus syndrome; E03.9 Hypothyroidism, unspecified; I48.2 Chronic atrial fibrillation; E87.1 Hypo-osmolality and hyponatremia; Z95.0 Presence of cardiac pacemaker
CPT/HCPCS: G0463

== ENCOUNTER 2016-11-29 08:10 | Inpatient (IN) | payer MEDICARE, OTHER ==
[~2016-11-29] VITALS: Ht 162.6 cm; Wt 57.8 kg
[~2016-11-29 08:10] MED LIST changes: -AMIO200T44 PO; -BISA10S PR; +BUDE10.2 IH; +CHOL200041 PO; +CLON.2 PO; +ESCI10TA PO; -FURO20 PO; +GLIP5 PO; -GUAIFDM120 PO; -HYDR50 PO; -LEVO250 PO; +LOSA50TA37 PO; -METF500T4 PO; -METO-323 PO; -MONT10TA21 PO
[2016-11-29] MEDS ORDERED: NITROGLYCERIN 2% (1 GM=INCH) PACKET TP ONE (08:45)
[2016-11-29] MEDS ORDERED: ASPIRIN 81 MG CHEWABLE TABLET PO ONE (08:45)
[2016-11-29] MEDS ORDERED: DiphenhydrAMINE HCL 50 MG/ML VIAL IVP ONE (08:45)
[2016-11-29] MEDS ORDERED: ONDANSETRON HCL 4 MG/2 ML VIAL IVP ONE (08:45)
[2016-11-29 09:13] LABS: BASOPHILS # (AUTO) 0.02 K/uL (0.00-0.20); BASOPHILS % (AUTO) 0.3 % (0.0-2.0); EOSINOPHILS # (AUTO) 0.07 K/uL (0.00-0.70); EOSINOPHILS % (AUTO) 1.17 % (1.0-6.0); HEMOGLOBIN 9.5 g/dL (12.0-16.0); LYMPHOCYTES # (AUTO) 0.7 K/uL (1.0-4.8); LYMPHOCYTES % (AUTO) 11.3 % (22.0-44.0); MEAN CORPUSCULAR HGB CONC 31.7 G/dL (31.0-37.0); MEAN CORPUSCULAR VOLUME 73 fL (80-100); MONOCYTES # (AUTO) 0.5 K/uL (0.1-1.0); MONOCYTES % (AUTO) 8.8 % (2.0-9.0); NEUTROPHILS # (AUTO) 4.9 K/uL (1.8-7.7); NEUTROPHILS % (AUTO) 78.5 % (40.0-70.0); PLATELET COUNT (AUTO) 187 K/uL (150-450); RED BLOOD CELL COUNT(AUTO) 4.12 MIL/uL (4.00-5.20); RED CELL DISTRIBUTION WIDTH 15.2 % (11.5-14.5); WHITE BLOOD COUNT (AUTO) 6.2 K/uL (4.5-11.0)
[2016-11-29] MEDS ORDERED: ONDANSETRON HCL 4 MG/2 ML VIAL IVP PRN (09:15)
[2016-11-29] MEDS ORDERED: ALBUTEROL SULFATE 2.5 MG/0.5 ML NEB SOLUTION NEB PRN (09:15)
[2016-11-29] MEDS ORDERED: BISACODYL 10 MG RECTAL RECTAL SUPPOSITORY PR PRN (09:15)
[2016-11-29] MEDS ORDERED: DEXTROSE 50%-WATER 25 GM/50 ML SYRINGE IVP PRN (09:15)
[2016-11-29] MEDS: PANTOPRAZOLE SODIUM 40 MG DR TABLET PO SCH (09:26)
[2016-11-29 09:35] LABS: ALBUMIN 3.8 g/dL (3.4-5.0); BILIRUBIN,TOTAL 0.4 mg/dL (0.1-1.0); CREATININE 1.53 mg/dL (0.60-1.30); TOTAL PROTEIN, SERUM 7.4 g/dL (6.4-8.2)
[2016-11-29 09:37] LABS: APPEARANCE,URINE CLEAR (CLEAR); GLUCOSE, URINE (UA) 250 mg/dL (NEGATIVE); KETONES,URINE NEGATIVE (NEGATIVE); LEUKOCYTE ESTERASE ,URINE NEGATIVE (NEGATIVE); OCCULT BLOOD,URINE NEGATIVE (NEGATIVE); PROTEIN,URINE NEGATIVE (NEGATIVE)
[2016-11-29 09:38] LABS: ADD UA MICROSCOPIC YES
[2016-11-29 09:49] LABS: SQUAMOUS EPITHELIAL CELL,UR Few /LPF (None Seen); WBC,URINE 0-2 /HPF (0-5)
[2016-11-29 11:04] LABS: POTASSIUM 4.7 mmol/L (3.5-5.1)
[2016-11-29 11:24] LABS: RBC MORPHOLOGY COMMENT ABNORMAL RBC MORPH
[2016-11-29 11:40] VITALS: BP 166/79
[2016-11-29 11:47] LABS: GLUCOSE,POINT OF CARE 334 MG/DL (70-110)
[2016-11-29 11:48] LABS: GLUCOSE,POINT OF CARE 209 MG/DL (70-110)
[2016-11-29] MEDS: INSULIN ASPART 100 UNITS/ML SQ PRN ×3 (12:51→20:28)
[2016-11-29] MEDS ORDERED: PNEUMOCOCCAL VACCINE POLYVALENT 0.5 ML VIAL [PPSV23] IM ONE (14:15)
[2016-11-29 15:09] VITALS: BP 168/76
[2016-11-29] MEDS: CloNIDine HCL 0.1 MG TABLET PO SCH ×2 (15:26→23:30)
[2016-11-29 19:28] VITALS: BP 121/50
[2016-11-29] MEDS: DOCUSATE SODIUM 100 MG CAPSULE PO SCH (19:55)
[2016-11-29] MEDS: HydrOXYzine HCL 25 MG TABLET PO PRN (19:55)
[2016-11-29] MEDS: AmLODIPine BESYLATE 5 MG TABLET PO SCH (19:55)
[2016-11-29] MEDS: APIXABAN 2.5 MG TABLET PO SCH (21:00)
[2016-11-29 23:17] VITALS: BP 147/57
[2016-11-30 05:13] VITALS: BP 162/69
[2016-11-30 07:14] VITALS: BP 125/51
[2016-11-30 07:34] LABS: BASOPHILS # (AUTO) 0.04 K/uL (0.00-0.20); BASOPHILS % (AUTO) 0.7 % (0.0-2.0); EOSINOPHILS # (AUTO) 0.12 K/uL (0.00-0.70); EOSINOPHILS % (AUTO) 2.12 % (1.0-6.0); HEMATOCRIT 26.9 % (36-46); HEMOGLOBIN 8.6 g/dL (12.0-16.0); LYMPHOCYTES # (AUTO) 0.9 K/uL (1.0-4.8); LYMPHOCYTES % (AUTO) 15.1 % (22.0-44.0); MEAN CORPUSCULAR HEMOGLOBIN 23.6 pg (26.0-34.0); MEAN CORPUSCULAR HGB CONC 31.8 G/dL (31.0-37.0); MEAN CORPUSCULAR VOLUME 74 fL (80-100); MONOCYTES # (AUTO) 0.9 K/uL (0.1-1.0); MONOCYTES % (AUTO) 15.6 % (2.0-9.0); NEUTROPHILS # (AUTO) 3.8 K/uL (1.8-7.7); NEUTROPHILS % (AUTO) 66.5 % (40.0-70.0); PLATELET COUNT (AUTO) 181 K/uL (150-450); RED BLOOD CELL COUNT(AUTO) 3.62 MIL/uL (4.00-5.20); WHITE BLOOD COUNT (AUTO) 5.7 K/uL (4.5-11.0)
[2016-11-30 08:03] LABS: CALCIUM, TOTAL 9.1 mg/dL (8.8-10.5); CREATININE 1.36 mg/dL (0.60-1.30); POTASSIUM 5.4 mmol/L (3.5-5.1)
[2016-11-30] MEDS: PANTOPRAZOLE SODIUM 40 MG DR TABLET PO SCH (08:10)
[2016-11-30] MEDS: APIXABAN 2.5 MG TABLET PO SCH ×2 (08:10→21:08)
[2016-11-30] MEDS: CloNIDine HCL 0.1 MG TABLET PO SCH ×2 (08:11→15:35)
[2016-11-30] MEDS: DOCUSATE SODIUM 100 MG CAPSULE PO SCH ×2 (08:11→20:22)
[2016-11-30] MEDS: AmLODIPine BESYLATE 5 MG TABLET PO SCH ×2 (08:11→20:22)
[2016-11-30 09:02] LABS: RBC MORPHOLOGY COMMENT ABNORMAL RBC MORPH
[2016-11-30 11:28] VITALS: BP 141/58
[2016-11-30] MEDS: INSULIN ASPART 100 UNITS/ML SQ PRN ×3 (13:19→21:01)
[2016-11-30] MEDS: HydrOXYzine HCL 25 MG TABLET PO PRN (15:44)
[2016-11-30 16:08] VITALS: BP 154/68
[2016-11-30 17:38] LABS: GLUCOSE,POINT OF CARE 212 MG/DL (70-110)
[2016-11-30 19:49] VITALS: BP 150/55
[2016-11-30 23:49] VITALS: BP 139/56
[2016-12-01] VITALS (11 sets, daily range): BP systolic 115–212; BP diastolic 54–92
[2016-12-01] MEDS: CloNIDine HCL 0.1 MG TABLET PO SCH ×3 (00:23→10:13)
[2016-12-01] MEDS: ACETAMINOPHEN 325 MG TABLET PO PRN ×3 (01:14→16:36)
[2016-12-01] MEDS: INSULIN ASPART 100 UNITS/ML SQ PRN ×3 (06:15→17:30)
[2016-12-01 06:56] LABS: CALCIUM, TOTAL 9.4 mg/dL (8.8-10.5); CREATININE 1.15 mg/dL (0.60-1.30); POTASSIUM 4.9 mmol/L (3.5-5.1)
[2016-12-01] MEDS: PANTOPRAZOLE SODIUM 40 MG DR TABLET PO SCH (07:53)
[2016-12-01] MEDS: AmLODIPine BESYLATE 5 MG TABLET PO SCH (07:53)
[2016-12-01] MEDS: DOCUSATE SODIUM 100 MG CAPSULE PO SCH (07:53)
[2016-12-01] MEDS: APIXABAN 2.5 MG TABLET PO SCH (07:54)
[2016-12-01] MEDS: HydrOXYzine HCL 25 MG TABLET PO PRN (09:35)
[2016-12-01] MEDS ORDERED: CloNIDine HCL 0.1 MG TABLET ONE (10:12)
[2016-12-01] MEDS ORDERED: CloNIDine HCL 0.2 MG TABLET PO SCH (16:00)
[2016-12-01 20:13] LABS: GLUCOSE,POINT OF CARE 234 MG/DL (70-110)
[2016-12-01 20:13] LABS: GLUCOSE,POINT OF CARE 217 MG/DL (70-110)
[2016-12-01 20:13] LABS: GLUCOSE,POINT OF CARE 181 MG/DL (70-110)
[2016-12-01 20:13] LABS: GLUCOSE,POINT OF CARE 212 MG/DL (70-110)
[2016-12-01 20:13] LABS: GLUCOSE,POINT OF CARE 212 MG/DL (70-110)
[2016-12-01 20:13] LABS: GLUCOSE,POINT OF CARE 226 MG/DL (70-110)
[2016-12-01 20:14] LABS: GLUCOSE,POINT OF CARE 167 MG/DL (70-110)
[2016-12-01 20:14] LABS: GLUCOSE,POINT OF CARE 231 MG/DL (70-110)
[2016-12-01 20:18] LABS: GLUCOSE,POINT OF CARE 238 MG/DL (70-110)
== END 2016-12-01 18:22 | disposition home or self-care (01) | DRG 683 ==
LOC: EMS 08:13 → 5S 10:12
PROVIDERS: ADMIT Internal Medicine; ATTEND Internal Medicine
DX: N17.9 Acute kidney failure, unspecified (principal); E44.0 Moderate protein-calorie malnutrition; I48.91 Unspecified atrial fibrillation; I49.5 Sick sinus syndrome; E87.1 Hypo-osmolality and hyponatremia; D63.8 Anemia in other chronic diseases classified elsewhere; E03.9 Hypothyroidism, unspecified; E11.9 Type 2 diabetes mellitus without complications; R07.9 Chest pain, unspecified; I25.10 Atherosclerotic heart disease of native coronary artery without angina pectoris; J44.9 Chronic obstructive pulmonary disease, unspecified; I10 Essential (primary) hypertension; K21.9 Gastro-esophageal reflux disease without esophagitis; L29.9 Pruritus, unspecified; F41.9 Anxiety disorder, unspecified; Z87.01 Personal history of pneumonia (recurrent); Z88.5 Allergy status to narcotic agent; Z88.0 Allergy status to penicillin; Z88.8 Allergy status to other drugs, medicaments and biological substances; Z79.899 Other long term (current) drug therapy; Z79.01 Long term (current) use of anticoagulants; Z79.84 Long term (current) use of oral hypoglycemic drugs; Z90.710 Acquired absence of both cervix and uterus; Z98.891 History of uterine scar from previous surgery; Z90.49 Acquired absence of other specified parts of digestive tract; Z90.722 Acquired absence of ovaries, bilateral; Z68.21 Body mass index [BMI] 21.0-21.9, adult; Z82.49 Family history of ischemic heart disease and other diseases of the circulatory system; Z83.3 Family history of diabetes mellitus
CPT/HCPCS: 51701; 82962; 93005; 96374; 96375; 97162; 97530; 99285; J1200; J2405

== ENCOUNTER 2016-12-07 00:11 | Emergency (ER) | payer MEDICARE, OTHER ==
[~2016-12-07] VITALS: Ht 152.4 cm; Wt 64.0 kg
[~2016-12-07 00:11] MED LIST changes: -ESCI10TA PO; -GLIP5 PO; -LOSA50TA37 PO
[2016-12-07 01:28] LABS: BASOPHILS # (AUTO) 0.09 K/uL (0.00-0.20); BASOPHILS % (AUTO) 1.4 % (0.0-2.0); EOSINOPHILS # (AUTO) 0.24 K/uL (0.00-0.70); HEMATOCRIT 28.6 % (36-46); LYMPHOCYTES % (AUTO) 14.1 % (22.0-44.0); MEAN CORPUSCULAR HGB CONC 31.4 G/dL (31.0-37.0); MEAN CORPUSCULAR VOLUME 73 fL (80-100); MONOCYTES # (AUTO) 0.9 K/uL (0.1-1.0); MONOCYTES % (AUTO) 12.8 % (2.0-9.0); NEUTROPHILS # (AUTO) 4.7 K/uL (1.8-7.7); NEUTROPHILS % (AUTO) 68.2 % (40.0-70.0); PLATELET COUNT (AUTO) 254 K/uL (150-450); RED BLOOD CELL COUNT(AUTO) 3.91 MIL/uL (4.00-5.20); RED CELL DISTRIBUTION WIDTH 15.4 % (11.5-14.5)
[2016-12-07 01:31] LABS: ANION GAP 10 mmol/L (8-16); CARBON DIOXIDE 27 mmol/L (22-29); CHLORIDE 92 mmol/L (98-107); CREATININE 1.96 mg/dL (0.60-1.30); GLOMERULAR FILTR. RATE CALC 24 mL/min (>60); GLUCOSE,RANDOM 182 mg/dL (70-110); POTASSIUM 4.3 mmol/L (3.5-5.1); SODIUM SERUM 129 mmol/L (136-145); UREA NITROGEN, BLOOD 51 mg/dL (7-18)
[2016-12-07 02:02] LABS: ALANINE AMINOTRANSFERASE 19 U/L (12-78); ALBUMIN 4.1 g/dL (3.4-5.0); ALKALINE PHOSPHATASE 76 U/L (46-116); ASPARTATE AMINOTRANSFERASE 22 U/L (15-37); BILIRUBIN,TOTAL 0.4 mg/dL (0.1-1.0); CREATINE KINASE MB 3.2 ng/mL (0-5); CREATINE KINASE, TOTAL 185 U/L (26-192)
[2016-12-07 02:24] VITALS: BP 152/60
[2016-12-07 02:30] LABS: APPEARANCE,URINE CLEAR (CLEAR); BILIRUBIN,URINE NEGATIVE (NEGATIVE); GLUCOSE, URINE (UA) NEGATIVE (NEGATIVE); KETONES,URINE NEGATIVE (NEGATIVE); LEUKOCYTE ESTERASE ,URINE NEGATIVE (NEGATIVE); NITRATE,URINE NEGATIVE (NEGATIVE); OCCULT BLOOD,URINE NEGATIVE (NEGATIVE); PROTEIN,URINE NEGATIVE (NEGATIVE); UROBILINOGEN,URINE 0.2 mg/dL (<=1.0)
[2016-12-07 02:51] LABS: B-TYPE NATRIURETIC PEPTIDE 110 pg/mL (0-100)
== END 2016-12-07 02:58 | disposition home or self-care (01) ==
LOC: EMS 00:14
DX: E87.1 Hypo-osmolality and hyponatremia (principal); E03.9 Hypothyroidism, unspecified; E11.9 Type 2 diabetes mellitus without complications; I10 Essential (primary) hypertension; I48.91 Unspecified atrial fibrillation; J44.9 Chronic obstructive pulmonary disease, unspecified; K21.9 Gastro-esophageal reflux disease without esophagitis; Z91.19 Patient's noncompliance with other medical treatment and regimen; Z79.01 Long term (current) use of anticoagulants; Z79.4 Long term (current) use of insulin; Z88.0 Allergy status to penicillin; Z95.0 Presence of cardiac pacemaker; Z88.5 Allergy status to narcotic agent; Z88.8 Allergy status to other drugs, medicaments and biological substances
CPT/HCPCS: 93005; 99285

== ENCOUNTER 2017-01-10 09:22 | Inpatient (IN) | payer MEDICARE, OTHER ==
[~2017-01-10] VITALS: Ht 160 cm; Wt 58.5 kg
[2017-01-10 09:37] LABS: GLUCOSE,POINT OF CARE 244 MG/DL (70-110)
[2017-01-10] MEDS ORDERED: GLYB5 PO (09:37)
[2017-01-10] MEDS ORDERED: PIOG15TA6 PO (09:37)
[2017-01-10] MEDS ORDERED: HYDR25TA PO (09:37)
[2017-01-10] MEDS ORDERED: MONT10TA21 PO (09:37)
[2017-01-10] MEDS ORDERED: METF500T4 PO (09:37)
[2017-01-10] MEDS ORDERED: PANT40TA25 PO (09:37)
[2017-01-10] MEDS ORDERED: LOSA50TA37 PO (09:37)
[2017-01-10] MEDS ORDERED: NIFE60TA71 PO (09:37)
[2017-01-10] MEDS ORDERED: ADV500 IH (09:37)
[2017-01-10] MEDS ORDERED: ASPI81 PO (09:37)
[2017-01-10] MEDS ORDERED: SPIR25 PO (09:37)
[2017-01-10] MEDS ORDERED: METO50 PO (09:37)
[2017-01-10] MEDS ORDERED: LORA10TA7 PO (09:37)
[2017-01-10] MEDS ORDERED: KETOROLAC TROMETHAMINE 30 MG/ML VIAL IVP ONE (10:30)
[2017-01-10 10:59] LABS: BASOPHILS # (AUTO) 0.01 K/uL (0.00-0.20); BASOPHILS % (AUTO) 0.1 % (0.0-2.0); EOSINOPHILS % (AUTO) 1.07 % (1.0-6.0); HEMATOCRIT 31.3 % (36-46); HEMOGLOBIN 9.7 g/dL (12.0-16.0); LYMPHOCYTES # (AUTO) 0.7 K/uL (1.0-4.8); LYMPHOCYTES % (AUTO) 7.5 % (22.0-44.0); MEAN CORPUSCULAR HEMOGLOBIN 22.6 pg (26.0-34.0); MEAN CORPUSCULAR VOLUME 73 fL (80-100); MONOCYTES # (AUTO) 0.8 K/uL (0.1-1.0); MONOCYTES % (AUTO) 8.1 % (2.0-9.0); NEUTROPHILS # (AUTO) 8.2 K/uL (1.8-7.7); NEUTROPHILS % (AUTO) 83.2 % (40.0-70.0); PLATELET COUNT (AUTO) 188 K/uL (150-450); RED CELL DISTRIBUTION WIDTH 14.8 % (11.5-14.5); WHITE BLOOD COUNT (AUTO) 9.8 K/uL (4.5-11.0)
[2017-01-10 11:12] LABS: CALCIUM, TOTAL 9.2 mg/dL (8.8-10.5); CREATININE 1.18 mg/dL (0.60-1.30); POTASSIUM 3.7 mmol/L (3.5-5.1)
[2017-01-10 11:27] LABS: ALBUMIN 3.5 g/dL (3.4-5.0); BILIRUBIN,TOTAL 0.5 mg/dL (0.1-1.0); THYROID STIMULATING HORMONE 0.23 uIU/mL (0.36-3.74); TOTAL PROTEIN, SERUM 7.6 g/dL (6.4-8.2)
[2017-01-10] MEDS ORDERED: VANCOMYCIN HCL 1 GM/D5% WATER 200 ML IV ONE (11:30)
[2017-01-10 12:08] LABS: RBC MORPHOLOGY COMMENT ABNORMAL RBC MORPH
[2017-01-10] MEDS ORDERED: 0.9% SODIUM CHLORIDE 10 ML SYRINGE IVP PRN (13:15)
[2017-01-10] MEDS ORDERED: DEXTROSE 50%-WATER 25 GM/50 ML SYRINGE IVP PRN (13:15)
[2017-01-10] MEDS ORDERED: INSULIN ASPART 100 UNITS/ML SQ PRN (13:15)
[2017-01-10] MEDS ORDERED: ONDANSETRON HCL 4 MG/2 ML VIAL IVP PRN (13:15)
[2017-01-10 14:29] VITALS: BP 145/65
[2017-01-10 16:36] VITALS: BP 183/84
[2017-01-10] MEDS: ALBUTEROL SULFATE 2.5 MG/0.5 ML NEB SOLUTION NEB SCH ×2 (16:45→19:26)
[2017-01-10] MEDS ORDERED: HYDR-2924 PO (17:31)
[2017-01-10] MEDS ORDERED: ATOR40TA28 PO (17:31)
[2017-01-10] MEDS ORDERED: INSLAN SQ (17:31)
[2017-01-10 17:36] LABS: GLUCOSE,POINT OF CARE 193 MG/DL (70-110)
[2017-01-10 18:18] VITALS: BP 167/98
[2017-01-10] MEDS ORDERED: 0.9% SODIUM CHLORIDE 5 ML NEB SOLUTION NEB ONE (19:18)
[2017-01-10 19:44] VITALS: BP 165/72
[2017-01-10] MEDS: DOCUSATE SODIUM 100 MG CAPSULE PO SCH (20:15)
[2017-01-10] MEDS: HYPROMELLOSE 0.5% 15 ML OPHTHALMIC SOLUTION OU SCH (20:15)
[2017-01-10] MEDS: APIXABAN 2.5 MG TABLET PO SCH (20:15)
[2017-01-10] MEDS: CloNIDine HCL 0.2 MG TABLET PO SCH (20:15)
[2017-01-10] MEDS: BUDESONIDE/FORMOTEROL FUMARATE 160-4.5 MCG/PUFF 6.9 GM INHALER IH SCH (20:16)
[2017-01-10] MEDS: ACETAMINOPHEN 325 MG TABLET PO PRN (20:16)
[2017-01-10 23:16] VITALS: BP 131/55
[2017-01-11 00:22] LABS: GLUCOSE COMMENT 1 Received Meds; GLUCOSE,POINT OF CARE 274 MG/DL (70-110)
[2017-01-11] MEDS: ACETAMINOPHEN 325 MG TABLET PO PRN ×2 (00:44→17:07)
[2017-01-11] MEDS ORDERED: 0.9% SODIUM CHLORIDE 5 ML NEB SOLUTION NEB ONE ×4 (02:31→19:45)
[2017-01-11] MEDS: ALBUTEROL SULFATE 2.5 MG/0.5 ML NEB SOLUTION NEB SCH ×4 (02:36→20:05)
[2017-01-11 05:04] VITALS: BP 125/58
[2017-01-11] MEDS: LEVOTHYROXINE SODIUM 75 MCG TABLET PO SCH (05:56)
[2017-01-11 06:42] LABS: GLUCOSE,POINT OF CARE 343 MG/DL (70-110)
[2017-01-11] MEDS ORDERED: DEXTROSE 50%-WATER 25 GM/50 ML SYRINGE IVP PRN (06:45)
[2017-01-11] MEDS: INSULIN ASPART 100 UNITS/ML SQ PRN ×4 (06:55→20:43)
[2017-01-11 07:07] LABS: GLUCOSE COMMENT 1 Doctor Notified; GLUCOSE,POINT OF CARE 404 MG/DL (70-110)
[2017-01-11 07:20] LABS: BASOPHILS % (AUTO) 0.2 % (0.0-2.0); EOSINOPHILS % (AUTO) 0.8 % (1.0-6.0); HEMATOCRIT 26.8 % (36-46); HEMOGLOBIN 8.5 g/dL (12.0-16.0); LYMPHOCYTES # (AUTO) 0.6 K/uL (1.0-4.8); LYMPHOCYTES % (AUTO) 9.3 % (22.0-44.0); MEAN CORPUSCULAR HEMOGLOBIN 22.9 pg (26.0-34.0); MEAN CORPUSCULAR HGB CONC 31.9 G/dL (31.0-37.0); MEAN CORPUSCULAR VOLUME 72 fL (80-100); MONOCYTES # (AUTO) 0.6 K/uL (0.1-1.0); MONOCYTES % (AUTO) 9.2 % (2.0-9.0); NEUTROPHILS % (AUTO) 80.5 % (40.0-70.0); PLATELET COUNT (AUTO) 156 K/uL (150-450); RED BLOOD CELL COUNT(AUTO) 3.73 MIL/uL (4.00-5.20); RED CELL DISTRIBUTION WIDTH 14.9 % (11.5-14.5); WHITE BLOOD COUNT (AUTO) 6.2 K/uL (4.5-11.0)
[2017-01-11 07:37] LABS: ALBUMIN 2.9 g/dL (3.4-5.0); BILIRUBIN,TOTAL 0.4 mg/dL (0.1-1.0); CALCIUM, TOTAL 8.6 mg/dL (8.8-10.5); CREATININE 1.51 mg/dL (0.60-1.30); POTASSIUM 3.1 mmol/L (3.5-5.1); TOTAL PROTEIN, SERUM 6.4 g/dL (6.4-8.2)
[2017-01-11] MEDS: LORATADINE 10 MG TABLET PO SCH (08:19)
[2017-01-11] MEDS: GlyBURIDE 5 MG TABLET PO SCH (08:19)
[2017-01-11] MEDS: LOSARTAN POTASSIUM 50 MG TABLET PO SCH (08:19)
[2017-01-11] MEDS: SPIRONOLACTONE 25 MG TABLET PO SCH (08:19)
[2017-01-11] MEDS: METOPROLOL TARTRATE 50 MG TABLET PO SCH (08:19)
[2017-01-11] MEDS: DOCUSATE SODIUM 100 MG CAPSULE PO SCH ×2 (08:19→20:32)
[2017-01-11] MEDS: CloNIDine HCL 0.2 MG TABLET PO SCH ×3 (08:20→20:33)
[2017-01-11] MEDS: APIXABAN 2.5 MG TABLET PO SCH ×2 (08:21→20:32)
[2017-01-11] MEDS: CHOLECALCIFEROL (VIT D3) 2,000 UNITS TABLET PO SCH (08:21)
[2017-01-11] MEDS: NIFEdipine 60 MG ER TABLET PO SCH (08:21)
[2017-01-11] MEDS: MONTELUKAST SODIUM 10 MG TABLET PO SCH (08:21)
[2017-01-11] MEDS: PIOGLITAZONE HCL 15 MG TABLET PO SCH (08:21)
[2017-01-11] MEDS: BUDESONIDE/FORMOTEROL FUMARATE 160-4.5 MCG/PUFF 6.9 GM INHALER IH SCH ×2 (08:22→20:32)
[2017-01-11] MEDS: HYPROMELLOSE 0.5% 15 ML OPHTHALMIC SOLUTION OU SCH ×2 (08:22→20:33)
[2017-01-11] MEDS: ASPIRIN 81 MG CHEWABLE TABLET PO SCH (08:24)
[2017-01-11 08:32] LABS: RBC MORPHOLOGY COMMENT ABNORMAL RBC MORPH
[2017-01-11] MEDS ORDERED: PANTOPRAZOLE SODIUM 40 MG DR TABLET PO SCH ×2 (09:00)
[2017-01-11 11:22] LABS: GLUCOSE COMMENT 1 Received Meds; GLUCOSE,POINT OF CARE 172 MG/DL (70-110)
[2017-01-11] MEDS ORDERED: ONDANSETRON HCL 4 MG/2 ML VIAL IVP PRN (16:45)
[2017-01-11] MEDS ORDERED: GuaiFENesin [SUGAR-FREE] 200 MG/10 ML SOLUTION UDCUP PO PRN (16:45)
[2017-01-11] MEDS ORDERED: MAGNESIUM HYDROXIDE SUSPENSION 30 ML UDCUP PO PRN (16:45)
[2017-01-11] MEDS ORDERED: ALBUTEROL SULFATE 2.5 MG/0.5 ML NEB SOLUTION NEB PRN (16:45)
[2017-01-11] MEDS ORDERED: BISACODYL 10 MG RECTAL RECTAL SUPPOSITORY PR PRN (16:45)
[2017-01-11] MEDS ORDERED: POTASSIUM CHLORIDE 20 MEQ ER TABLET PO ONE (17:00)
[2017-01-11] MEDS ORDERED: SODIUM CHLORIDE 0.9% 500 ML IV ONE (17:39)
[2017-01-11] MEDS: LEVOFLOXACIN 500 MG/D5% WATER 100 ML IV SCH (17:45)
[2017-01-11 17:57] LABS: GLUCOSE COMMENT 1 Received Meds; GLUCOSE,POINT OF CARE 242 MG/DL (70-110)
[2017-01-11] MEDS ORDERED: VANCOMYCIN HCL 750 MG in DEXTROSE 5%-WATER 150 ML IV ONE (18:00)
[2017-01-11] MEDS ORDERED: VANCOMYCIN HCL 1 GM/D5% WATER 200 ML IV ONE (18:00)
[2017-01-11 19:09] VITALS: BP 116/45
[2017-01-11] MEDS ORDERED: DOCUSATE SODIUM 100 MG CAPSULE PO SCH (21:00)
[2017-01-11 21:02] LABS: GLUCOSE COMMENT 1 Received Meds; GLUCOSE,POINT OF CARE 290 MG/DL (70-110)
[2017-01-11 23:27] VITALS: BP 145/52
[2017-01-11] MEDS: HEPARIN SODIUM,PORCINE 5,000 UNITS/ML VIAL SQ SCH (23:33)
[2017-01-12] MEDS: ACETAMINOPHEN 325 MG TABLET PO PRN ×5 (01:32→20:25)
[2017-01-12] MEDS ORDERED: 0.9% SODIUM CHLORIDE 5 ML NEB SOLUTION NEB ONE ×5 (02:19→19:28)
[2017-01-12] MEDS: ALBUTEROL SULFATE 2.5 MG/0.5 ML NEB SOLUTION NEB SCH ×4 (02:25→19:39)
[2017-01-12 04:08] VITALS: BP 152/56
[2017-01-12] MEDS: LEVOTHYROXINE SODIUM 75 MCG TABLET PO SCH (05:36)
[2017-01-12] MEDS: INSULIN ASPART 100 UNITS/ML SQ PRN ×4 (05:42→20:50)
[2017-01-12 07:15] LABS: CALCIUM, TOTAL 9.1 mg/dL (8.8-10.5); CREATININE 1.12 mg/dL (0.60-1.30); POTASSIUM 3.9 mmol/L (3.5-5.1)
[2017-01-12 07:22] LABS: GLUCOSE COMMENT 1 Received Meds; GLUCOSE,POINT OF CARE 212 MG/DL (70-110)
[2017-01-12 07:35] VITALS: BP 153/52
[2017-01-12] MEDS: HYPROMELLOSE 0.5% 15 ML OPHTHALMIC SOLUTION OU SCH ×2 (08:27→20:24)
[2017-01-12] MEDS: LOSARTAN POTASSIUM 50 MG TABLET PO SCH (08:28)
[2017-01-12] MEDS: GlyBURIDE 5 MG TABLET PO SCH (08:28)
[2017-01-12] MEDS: SPIRONOLACTONE 25 MG TABLET PO SCH (08:29)
[2017-01-12] MEDS: DOCUSATE SODIUM 100 MG CAPSULE PO SCH ×2 (08:29→20:23)
[2017-01-12] MEDS: PIOGLITAZONE HCL 15 MG TABLET PO SCH (08:29)
[2017-01-12] MEDS: PANTOPRAZOLE SODIUM 40 MG/VIAL IVP SCH (08:30)
[2017-01-12] MEDS: MONTELUKAST SODIUM 10 MG TABLET PO SCH (08:30)
[2017-01-12] MEDS: CHOLECALCIFEROL (VIT D3) 2,000 UNITS TABLET PO SCH (08:32)
[2017-01-12] MEDS: APIXABAN 2.5 MG TABLET PO SCH (08:32)
[2017-01-12] MEDS: NIFEdipine 60 MG ER TABLET PO SCH (08:33)
[2017-01-12] MEDS: ASPIRIN 81 MG CHEWABLE TABLET PO SCH (08:36)
[2017-01-12] MEDS: LORATADINE 10 MG TABLET PO SCH (08:36)
[2017-01-12] MEDS: HEPARIN SODIUM,PORCINE 5,000 UNITS/ML VIAL SQ SCH (08:37)
[2017-01-12] MEDS: BUDESONIDE/FORMOTEROL FUMARATE 160-4.5 MCG/PUFF 6.9 GM INHALER IH SCH ×3 (08:50→20:35)
[2017-01-12] MEDS: METOPROLOL TARTRATE 50 MG TABLET PO SCH (08:51)
[2017-01-12] MEDS: VANCOMYCIN HCL 500 MG in DEXTROSE 5%-WATER 100 ML IV SCH (08:53)
[2017-01-12] MEDS: CloNIDine HCL 0.2 MG TABLET PO SCH ×3 (08:59→20:30)
[2017-01-12 11:40] VITALS: BP 143/49
[2017-01-12 12:02] LABS: GLUCOSE,POINT OF CARE 230 MG/DL (70-110)
[2017-01-12] MEDS ORDERED: HEPARIN SODIUM 25000 UNITS/D5W 250 ML IV PRN (14:50)
[2017-01-12] MEDS ORDERED: HEPARIN SODIUM,PORCINE 5,000 UNITS/ML VIAL IVP ONE (15:00)
[2017-01-12] MEDS ORDERED: HEPARIN SODIUM,PORCINE 5,000 UNITS/ML VIAL IVP PRN ×2 (15:00)
[2017-01-12 15:27] VITALS: BP 152/62
[2017-01-12 15:36] LABS: BASOPHILS # (AUTO) 0.04 K/uL (0.00-0.20); BASOPHILS % (AUTO) 0.6 % (0.0-2.0); EOSINOPHILS # (AUTO) 0.08 K/uL (0.00-0.70); EOSINOPHILS % (AUTO) 1.09 % (1.0-6.0); HEMATOCRIT 27.7 % (36-46); HEMOGLOBIN 8.6 g/dL (12.0-16.0); LYMPHOCYTES # (AUTO) 1.1 K/uL (1.0-4.8); LYMPHOCYTES % (AUTO) 14.6 % (22.0-44.0); MEAN CORPUSCULAR HEMOGLOBIN 22.4 pg (26.0-34.0); MEAN CORPUSCULAR HGB CONC 31.1 G/dL (31.0-37.0); MEAN CORPUSCULAR VOLUME 72 fL (80-100); MONOCYTES % (AUTO) 13.1 % (2.0-9.0); NEUTROPHILS # (AUTO) 5.2 K/uL (1.8-7.7); NEUTROPHILS % (AUTO) 70.6 % (40.0-70.0); PLATELET COUNT (AUTO) 166 K/uL (150-450); RED BLOOD CELL COUNT(AUTO) 3.85 MIL/uL (4.00-5.20); RED CELL DISTRIBUTION WIDTH 15.1 % (11.5-14.5); WHITE BLOOD COUNT (AUTO) 7.3 K/uL (4.5-11.0)
[2017-01-12 16:08] LABS: INR 1.1 (0.9-1.1); PROTHROMBIN TIME 11.2 SEC (9.4-11.6)
[2017-01-12] MEDS: LEVOFLOXACIN 500 MG/D5% WATER 100 ML IV SCH (17:10)
[2017-01-12 17:22] LABS: GLUCOSE,POINT OF CARE 209 MG/DL (70-110)
[2017-01-12 19:52] VITALS: BP 126/47
[2017-01-12 23:09] VITALS: BP 142/72
[2017-01-12 23:14] LABS: INR 1.1 (0.9-1.1)
[2017-01-12 23:15] LABS: PARTIAL THROMBOPLASTIN TIME > 300 SEC (25-35)
[2017-01-13] VITALS (11 sets, daily range): BP systolic 137–204; BP diastolic 54–85
[2017-01-13] MEDS: ACETAMINOPHEN 325 MG TABLET PO PRN ×2 (00:10→04:29)
[2017-01-13] MEDS: CloNIDine HCL 0.2 MG TABLET PO SCH ×3 (00:15→21:19)
[2017-01-13] MEDS ORDERED: 0.9% SODIUM CHLORIDE 5 ML NEB SOLUTION NEB ONE (02:30)
[2017-01-13] MEDS: ALBUTEROL SULFATE 2.5 MG/0.5 ML NEB SOLUTION NEB SCH ×4 (02:32→20:26)
[2017-01-13 03:13] LABS: GLUCOSE COMMENT 1 Received Meds; GLUCOSE,POINT OF CARE 203 MG/DL (70-110)
[2017-01-13 06:26] LABS: BASOPHILS % (AUTO) 0.4 % (0.0-2.0); EOSINOPHILS % (AUTO) 1.1 % (1.0-6.0); HEMATOCRIT 26.5 % (36-46); HEMOGLOBIN 8.5 g/dL (12.0-16.0); LYMPHOCYTES # (AUTO) 0.8 K/uL (1.0-4.8); MEAN CORPUSCULAR HEMOGLOBIN 22.8 pg (26.0-34.0); MEAN CORPUSCULAR VOLUME 71 fL (80-100); MONOCYTES # (AUTO) 0.9 K/uL (0.1-1.0); MONOCYTES % (AUTO) 11.7 % (2.0-9.0); NEUTROPHILS # (AUTO) 5.7 K/uL (1.8-7.7); NEUTROPHILS % (AUTO) 75.8 % (40.0-70.0); PLATELET COUNT (AUTO) 162 K/uL (150-450); RED BLOOD CELL COUNT(AUTO) 3.72 MIL/uL (4.00-5.20); RED CELL DISTRIBUTION WIDTH 15.1 % (11.5-14.5); WHITE BLOOD COUNT (AUTO) 7.6 K/uL (4.5-11.0)
[2017-01-13] MEDS: LEVOTHYROXINE SODIUM 75 MCG TABLET PO SCH (06:30)
[2017-01-13] MEDS: INSULIN ASPART 100 UNITS/ML SQ PRN ×2 (06:46→21:03)
[2017-01-13 06:48] LABS: CALCIUM, TOTAL 9.3 mg/dL (8.8-10.5); CREATININE 1.15 mg/dL (0.60-1.30); POTASSIUM 4.7 mmol/L (3.5-5.1)
[2017-01-13] MEDS: GlyBURIDE 5 MG TABLET PO SCH (08:00)
[2017-01-13] MEDS ORDERED: HEPARIN SODIUM 1000 UNITS/NS 500 ML ONE ×4 (08:30→16:17)
[2017-01-13] MEDS ORDERED: IODIXANOL 320 MG/ML 100 ML VIAL ONE ×4 (08:31→15:17)
[2017-01-13] MEDS ORDERED: LIDOCAINE HCL/PF 1% 30 ML VIAL ONE ×2 (08:31→14:00)
[2017-01-13] MEDS: HYPROMELLOSE 0.5% 15 ML OPHTHALMIC SOLUTION OU SCH ×2 (08:55→21:04)
[2017-01-13] MEDS: VANCOMYCIN HCL 500 MG in DEXTROSE 5%-WATER 100 ML IV SCH (08:55)
[2017-01-13] MEDS: BUDESONIDE/FORMOTEROL FUMARATE 160-4.5 MCG/PUFF 6.9 GM INHALER IH SCH ×3 (08:57→21:05)
[2017-01-13] MEDS: PANTOPRAZOLE SODIUM 40 MG/VIAL IVP SCH (08:57)
[2017-01-13] MEDS: CHOLECALCIFEROL (VIT D3) 2,000 UNITS TABLET PO SCH (09:00)
[2017-01-13] MEDS: METOPROLOL TARTRATE 50 MG TABLET PO SCH (09:00)
[2017-01-13] MEDS: MONTELUKAST SODIUM 10 MG TABLET PO SCH (09:00)
[2017-01-13] MEDS: NIFEdipine 60 MG ER TABLET PO SCH (09:00)
[2017-01-13] MEDS: DOCUSATE SODIUM 100 MG CAPSULE PO SCH ×2 (09:00→21:19)
[2017-01-13] MEDS: PIOGLITAZONE HCL 15 MG TABLET PO SCH (09:00)
[2017-01-13] MEDS: ASPIRIN 81 MG CHEWABLE TABLET PO SCH (09:00)
[2017-01-13] MEDS: LOSARTAN POTASSIUM 50 MG TABLET PO SCH (09:00)
[2017-01-13] MEDS: SPIRONOLACTONE 25 MG TABLET PO SCH (09:00)
[2017-01-13] MEDS: LORATADINE 10 MG TABLET PO SCH (09:00)
[2017-01-13] MEDS ORDERED: ALTEPLASE 2 MG/VIAL IVCATH ONE ×2 (10:15→12:45)
[2017-01-13] MEDS ORDERED: MIDAZOLAM HCL 2 MG/2 ML VIAL ONE ×3 (10:16→11:47)
[2017-01-13] MEDS ORDERED: FentaNYL CITRATE-PF 100 MCG/2 ML VIAL ONE ×3 (10:16→11:47)
[2017-01-13] MEDS ORDERED: FLUMAZENIL 0.1 MG/ML 5 ML VIAL IVP ONE (10:34)
[2017-01-13] MEDS ORDERED: NALOXONE HCL 0.4 MG/ML VIAL ONE (10:35)
[2017-01-13] MEDS ORDERED: HEPARIN SODIUM,PORCINE 1,000 UNITS/ML 10 ML VIAL ONE (11:22)
[2017-01-13] MEDS ORDERED: FentaNYL CITRATE-PF 100 MCG/2 ML VIAL IVP ONE (12:40)
[2017-01-13] MEDS ORDERED: MIDAZOLAM HCL 2 MG/2 ML VIAL IVP ONE (12:40)
[2017-01-13] MEDS ORDERED: ONDANSETRON HCL 4 MG/2 ML VIAL ONE (13:45)
[2017-01-13] MEDS ORDERED: CLOPIDOGREL BISULFATE 300 MG TABLET PO ONE (14:00)
[2017-01-13 15:12] LABS: GLUCOSE COMMENT 1 Received Meds; GLUCOSE,POINT OF CARE 205 MG/DL (70-110)
[2017-01-13 16:08] LABS: EOSINOPHILS # (AUTO) 0.03 K/uL (0.00-0.70); EOSINOPHILS % (AUTO) 0.17 % (1.0-6.0); HEMATOCRIT 30.4 % (36-46); HEMOGLOBIN 9.4 g/dL (12.0-16.0); LYMPHOCYTES % (AUTO) 6.2 % (22.0-44.0); MEAN CORPUSCULAR HEMOGLOBIN 23.5 pg (26.0-34.0); MEAN CORPUSCULAR VOLUME 76 fL (80-100); MONOCYTES # (AUTO) 1.2 K/uL (0.1-1.0); MONOCYTES % (AUTO) 7.7 % (2.0-9.0); NEUTROPHILS # (AUTO) 13.6 K/uL (1.8-7.7); PLATELET COUNT (AUTO) 149 K/uL (150-450); RED BLOOD CELL COUNT(AUTO) 4.01 MIL/uL (4.00-5.20); WHITE BLOOD COUNT (AUTO) 15.9 K/uL (4.5-11.0)
[2017-01-13] MEDS ORDERED: IODIXANOL 320 MG/ML 50 ML VIAL ONE (16:16)
[2017-01-13 16:28] LABS: INR 1.1 (0.9-1.1); PROTHROMBIN TIME 11.4 SEC (9.4-11.6)
[2017-01-13 16:31] LABS: CALCIUM, TOTAL 8.8 mg/dL (8.8-10.5); CREATININE 1.05 mg/dL (0.60-1.30); POTASSIUM 4.9 mmol/L (3.5-5.1)
[2017-01-13 16:47] LABS: NEUTROPHILS % (AUTO) 85.9 % (40.0-70.0)
[2017-01-13 18:42] LABS: HEMATOCRIT 33.6 % (36-46); HEMOGLOBIN 11.1 g/dL (12.0-16.0)
[2017-01-13] MEDS: IPRATROPIUM BROMIDE 0.5 MG/2.5 ML NEB SOLUTION NEB PRN (20:26)
[2017-01-13] MEDS: APIXABAN 2.5 MG TABLET PO SCH (21:00)
[2017-01-13] MEDS: LEVOFLOXACIN 500 MG/D5% WATER 100 ML IV SCH (21:20)
[2017-01-13] MEDS ORDERED: SODIUM CHLORIDE 0.9% 100 ML ONE (21:33)
[2017-01-13 22:38] LABS: HEMOGLOBIN 9.8 g/dL (12.0-16.0)
[2017-01-14] VITALS (13 sets, daily range): BP systolic 110–161; BP diastolic 36–107
[2017-01-14] MEDS: ACETAMINOPHEN 325 MG TABLET PO PRN ×5 (00:07→21:46)
[2017-01-14] MEDS ORDERED: 0.9% SODIUM CHLORIDE 5 ML NEB SOLUTION NEB ONE ×3 (01:22→19:29)
[2017-01-14] MEDS: ALBUTEROL SULFATE 2.5 MG/0.5 ML NEB SOLUTION NEB SCH ×4 (02:00→19:37)
[2017-01-14 04:59] LABS: CALCIUM, TOTAL 7.7 mg/dL (8.8-10.5); CREATININE 1.53 mg/dL (0.60-1.30); POTASSIUM 5.1 mmol/L (3.5-5.1)
[2017-01-14] MEDS: LEVOTHYROXINE SODIUM 75 MCG TABLET PO SCH (06:09)
[2017-01-14] MEDS: INSULIN ASPART 100 UNITS/ML SQ PRN ×3 (06:12→17:40)
[2017-01-14] MEDS: VANCOMYCIN HCL 500 MG in DEXTROSE 5%-WATER 100 ML IV SCH (07:58)
[2017-01-14 08:18] LABS: GLUCOSE COMMENT 1 Received Meds; GLUCOSE,POINT OF CARE 231 MG/DL (70-110)
[2017-01-14 08:18] LABS: GLUCOSE,POINT OF CARE 140 MG/DL (70-110)
[2017-01-14] MEDS ORDERED: SODIUM CHLORIDE 0.9% 100 ML ONE (08:27)
[2017-01-14] MEDS: METOPROLOL TARTRATE 50 MG TABLET PO SCH ×2 (08:32→09:00)
[2017-01-14] MEDS: SPIRONOLACTONE 25 MG TABLET PO SCH (08:34)
[2017-01-14] MEDS: DOCUSATE SODIUM 100 MG CAPSULE PO SCH ×2 (08:34→21:31)
[2017-01-14] MEDS: MONTELUKAST SODIUM 10 MG TABLET PO SCH (08:34)
[2017-01-14] MEDS: GlyBURIDE 5 MG TABLET PO SCH (08:35)
[2017-01-14] MEDS: NIFEdipine 60 MG ER TABLET PO SCH ×2 (08:35→09:00)
[2017-01-14] MEDS: LOSARTAN POTASSIUM 50 MG TABLET PO SCH ×2 (08:35→09:00)
[2017-01-14] MEDS: LORATADINE 10 MG TABLET PO SCH (08:36)
[2017-01-14] MEDS: CHOLECALCIFEROL (VIT D3) 2,000 UNITS TABLET PO SCH (08:36)
[2017-01-14] MEDS: PIOGLITAZONE HCL 15 MG TABLET PO SCH (08:37)
[2017-01-14] MEDS: APIXABAN 2.5 MG TABLET PO SCH ×2 (08:38→21:31)
[2017-01-14] MEDS: PANTOPRAZOLE SODIUM 40 MG/VIAL IVP SCH (08:38)
[2017-01-14] MEDS: CLOPIDOGREL BISULFATE 75 MG TABLET PO SCH (08:38)
[2017-01-14] MEDS: ASPIRIN 81 MG CHEWABLE TABLET PO SCH (08:39)
[2017-01-14] MEDS: BUDESONIDE/FORMOTEROL FUMARATE 160-4.5 MCG/PUFF 6.9 GM INHALER IH SCH ×2 (08:40→21:00)
[2017-01-14] MEDS: HYPROMELLOSE 0.5% 15 ML OPHTHALMIC SOLUTION OU SCH ×2 (08:40→21:46)
[2017-01-14] MEDS: CloNIDine HCL 0.2 MG TABLET PO SCH ×3 (09:00→21:31)
[2017-01-14] MEDS: IPRATROPIUM BROMIDE 0.5 MG/2.5 ML NEB SOLUTION NEB PRN (09:48)
[2017-01-14 14:43] LABS: GLUCOSE COMMENT 1 Received Meds; GLUCOSE,POINT OF CARE 189 MG/DL (70-110)
[2017-01-14] MEDS: LEVOFLOXACIN 500 MG/D5% WATER 100 ML IV SCH (17:36)
[2017-01-15] VITALS (26 sets, daily range): BP systolic 111–168; BP diastolic 35–65
[2017-01-15] MEDS ORDERED: 0.9% SODIUM CHLORIDE 5 ML NEB SOLUTION NEB ONE ×2 (01:16→08:18)
[2017-01-15] MEDS: ZOLPIDEM TARTRATE 5 MG TABLET PO PRN ×2 (01:51→20:56)
[2017-01-15] MEDS: ACETAMINOPHEN 325 MG TABLET PO PRN ×6 (01:51→22:59)
[2017-01-15] MEDS: ALBUTEROL SULFATE 2.5 MG/0.5 ML NEB SOLUTION NEB SCH ×4 (02:50→19:55)
[2017-01-15] MEDS ORDERED: SODIUM CHLORIDE 0.9% 500 ML IV ONE ×2 (05:23→09:56)
[2017-01-15] MEDS: LEVOTHYROXINE SODIUM 75 MCG TABLET PO SCH (05:31)
[2017-01-15] MEDS: INSULIN ASPART 100 UNITS/ML SQ PRN ×4 (05:33→20:57)
[2017-01-15 05:41] LABS: CALCIUM, TOTAL 7.5 mg/dL (8.8-10.5); CREATININE 1.81 mg/dL (0.60-1.30); POTASSIUM 4.8 mmol/L (3.5-5.1)
[2017-01-15 05:54] LABS: BASOPHILS % (AUTO) 0.1 % (0.0-2.0); EOSINOPHILS % (AUTO) 0.4 % (1.0-6.0); LYMPHOCYTES # (AUTO) 0.8 K/uL (1.0-4.8); LYMPHOCYTES % (AUTO) 8.1 % (22.0-44.0); MEAN CORPUSCULAR HEMOGLOBIN 26.6 pg (26.0-34.0); MEAN CORPUSCULAR HGB CONC 33.6 G/dL (31.0-37.0); MEAN CORPUSCULAR VOLUME 79 fL (80-100); MONOCYTES # (AUTO) 1.1 K/uL (0.1-1.0); MONOCYTES % (AUTO) 12.2 % (2.0-9.0); NEUTROPHILS # (AUTO) 7.5 K/uL (1.8-7.7); NEUTROPHILS % (AUTO) 79.2 % (40.0-70.0); RED BLOOD CELL COUNT(AUTO) 2.59 MIL/uL (4.00-5.20); RED CELL DISTRIBUTION WIDTH 18.5 % (11.5-14.5); WHITE BLOOD COUNT (AUTO) 9.4 K/uL (4.5-11.0)
[2017-01-15 06:20] LABS: HEMATOCRIT 20.5 % (36-46); HEMOGLOBIN 6.9 g/dL (12.0-16.0)
[2017-01-15 07:27] LABS: GLUCOSE,POINT OF CARE 143 MG/DL (70-110)
[2017-01-15 07:27] LABS: GLUCOSE COMMENT 1 Received Meds; GLUCOSE,POINT OF CARE 197 MG/DL (70-110)
[2017-01-15 07:32] LABS: GLUCOSE,POINT OF CARE 175 MG/DL (70-110)
[2017-01-15 07:41] LABS: PLATELET COUNT (AUTO) 84 K/uL (150-450)
[2017-01-15] MEDS: PIOGLITAZONE HCL 15 MG TABLET PO SCH (08:47)
[2017-01-15] MEDS: GlyBURIDE 5 MG TABLET PO SCH (08:47)
[2017-01-15] MEDS: VANCOMYCIN HCL 750 MG in DEXTROSE 5%-WATER 150 ML IV SCH (08:47)
[2017-01-15] MEDS: CHOLECALCIFEROL (VIT D3) 2,000 UNITS TABLET PO SCH (08:47)
[2017-01-15] MEDS: MONTELUKAST SODIUM 10 MG TABLET PO SCH (08:48)
[2017-01-15] MEDS: SPIRONOLACTONE 25 MG TABLET PO SCH (08:48)
[2017-01-15] MEDS: LORATADINE 10 MG TABLET PO SCH (08:48)
[2017-01-15] MEDS: NIFEdipine 60 MG ER TABLET PO SCH (08:48)
[2017-01-15] MEDS: LOSARTAN POTASSIUM 50 MG TABLET PO SCH (08:48)
[2017-01-15] MEDS: DOCUSATE SODIUM 100 MG CAPSULE PO SCH ×2 (08:49→20:55)
[2017-01-15] MEDS: METOPROLOL TARTRATE 50 MG TABLET PO SCH (08:49)
[2017-01-15] MEDS: PANTOPRAZOLE SODIUM 40 MG/VIAL IVP SCH (08:52)
[2017-01-15] MEDS: BUDESONIDE/FORMOTEROL FUMARATE 160-4.5 MCG/PUFF 6.9 GM INHALER IH SCH ×2 (08:53→20:55)
[2017-01-15] MEDS: HYPROMELLOSE 0.5% 15 ML OPHTHALMIC SOLUTION OU SCH ×2 (08:54→20:55)
[2017-01-15] MEDS: CloNIDine HCL 0.2 MG TABLET PO SCH ×3 (09:00→20:55)
[2017-01-15] MEDS: ASPIRIN 81 MG CHEWABLE TABLET PO SCH (09:00)
[2017-01-15] MEDS: CLOPIDOGREL BISULFATE 75 MG TABLET PO SCH (09:00)
[2017-01-15] MEDS: APIXABAN 2.5 MG TABLET PO SCH ×2 (09:00→20:55)
[2017-01-15] MEDS: IPRATROPIUM BROMIDE 0.5 MG/2.5 ML NEB SOLUTION NEB PRN ×2 (13:41→19:55)
[2017-01-15 16:04] LABS: BASOPHILS % (AUTO) 0.3 % (0.0-2.0); EOSINOPHILS % (AUTO) 0.6 % (1.0-6.0); HEMOGLOBIN 9.9 g/dL (12.0-16.0); LYMPHOCYTES # (AUTO) 0.8 K/uL (1.0-4.8); LYMPHOCYTES % (AUTO) 8.1 % (22.0-44.0); MEAN CORPUSCULAR HEMOGLOBIN 28.2 pg (26.0-34.0); MEAN CORPUSCULAR HGB CONC 34.1 G/dL (31.0-37.0); MEAN CORPUSCULAR VOLUME 83 fL (80-100); MONOCYTES # (AUTO) 1.1 K/uL (0.1-1.0); MONOCYTES % (AUTO) 11.5 % (2.0-9.0); NEUTROPHILS # (AUTO) 7.7 K/uL (1.8-7.7); NEUTROPHILS % (AUTO) 79.5 % (40.0-70.0); RED BLOOD CELL COUNT(AUTO) 3.49 MIL/uL (4.00-5.20); RED CELL DISTRIBUTION WIDTH 19.8 % (11.5-14.5); WHITE BLOOD COUNT (AUTO) 9.6 K/uL (4.5-11.0)
[2017-01-15] MEDS: LEVOFLOXACIN 500 MG/D5% WATER 100 ML IV SCH (16:32)
[2017-01-15 17:07] LABS: PLATELET COUNT (AUTO) 88 K/uL (150-450); RBC MORPHOLOGY COMMENT ABNORMAL RBC MORPH
[2017-01-15 18:51] LABS: GLUCOSE COMMENT 1 Received Meds; GLUCOSE,POINT OF CARE 331 MG/DL (70-110)
[2017-01-16] MEDS: ALBUTEROL SULFATE 2.5 MG/0.5 ML NEB SOLUTION NEB SCH ×4 (02:00→19:39)
[2017-01-16 04:15] VITALS: BP 119/50
[2017-01-16] MEDS: ACETAMINOPHEN 325 MG TABLET PO PRN ×3 (04:47→19:26)
[2017-01-16] MEDS: LEVOTHYROXINE SODIUM 75 MCG TABLET PO SCH (06:02)
[2017-01-16] MEDS: INSULIN ASPART 100 UNITS/ML SQ PRN ×4 (06:06→22:04)
[2017-01-16 06:28] LABS: BASOPHILS # (AUTO) 0.02 K/uL (0.00-0.20); BASOPHILS % (AUTO) 0.2 % (0.0-2.0); EOSINOPHILS # (AUTO) 0.14 K/uL (0.00-0.70); HEMATOCRIT 27.5 % (36-46); HEMOGLOBIN 9.1 g/dL (12.0-16.0); LYMPHOCYTES # (AUTO) 0.7 K/uL (1.0-4.8); LYMPHOCYTES % (AUTO) 8.4 % (22.0-44.0); MEAN CORPUSCULAR HEMOGLOBIN 27.9 pg (26.0-34.0); MEAN CORPUSCULAR VOLUME 84 fL (80-100); MONOCYTES # (AUTO) 0.9 K/uL (0.1-1.0); MONOCYTES % (AUTO) 11.2 % (2.0-9.0); NEUTROPHILS # (AUTO) 6.3 K/uL (1.8-7.7); NEUTROPHILS % (AUTO) 78.5 % (40.0-70.0); PLATELET COUNT (AUTO) 83 K/uL (150-450); RED BLOOD CELL COUNT(AUTO) 3.26 MIL/uL (4.00-5.20); RED CELL DISTRIBUTION WIDTH 19.1 % (11.5-14.5)
[2017-01-16 06:38] LABS: GLUCOSE COMMENT 1 Received Meds; GLUCOSE,POINT OF CARE 209 MG/DL (70-110)
[2017-01-16 06:38] LABS: GLUCOSE COMMENT 1 Received Meds; GLUCOSE,POINT OF CARE 156 MG/DL (70-110)
[2017-01-16 07:09] LABS: CALCIUM, TOTAL 7.7 mg/dL (8.8-10.5); CREATININE 1.45 mg/dL (0.60-1.30); POTASSIUM 4.7 mmol/L (3.5-5.1)
[2017-01-16 07:44] VITALS: BP 142/47
[2017-01-16 08:58] LABS: RBC MORPHOLOGY COMMENT ABNORMAL RBC MORPH
[2017-01-16] MEDS: METOPROLOL TARTRATE 50 MG TABLET PO SCH (08:59)
[2017-01-16] MEDS: DOCUSATE SODIUM 100 MG CAPSULE PO SCH ×2 (08:59→20:28)
[2017-01-16] MEDS: HYPROMELLOSE 0.5% 15 ML OPHTHALMIC SOLUTION OU SCH ×2 (08:59→20:28)
[2017-01-16] MEDS: PANTOPRAZOLE SODIUM 40 MG/VIAL IVP SCH (08:59)
[2017-01-16] MEDS: APIXABAN 2.5 MG TABLET PO SCH ×2 (08:59→20:28)
[2017-01-16] MEDS: CloNIDine HCL 0.2 MG TABLET PO SCH ×3 (09:00→21:59)
[2017-01-16] MEDS: ASPIRIN 81 MG CHEWABLE TABLET PO SCH (09:00)
[2017-01-16] MEDS: CLOPIDOGREL BISULFATE 75 MG TABLET PO SCH (09:00)
[2017-01-16] MEDS: LORATADINE 10 MG TABLET PO SCH (09:00)
[2017-01-16] MEDS: MONTELUKAST SODIUM 10 MG TABLET PO SCH (09:01)
[2017-01-16] MEDS: LOSARTAN POTASSIUM 50 MG TABLET PO SCH (09:01)
[2017-01-16] MEDS: GlyBURIDE 5 MG TABLET PO SCH (09:14)
[2017-01-16] MEDS: CHOLECALCIFEROL (VIT D3) 2,000 UNITS TABLET PO SCH (09:14)
[2017-01-16] MEDS: SPIRONOLACTONE 25 MG TABLET PO SCH (09:15)
[2017-01-16] MEDS: NIFEdipine 60 MG ER TABLET PO SCH (09:15)
[2017-01-16] MEDS: VANCOMYCIN HCL 750 MG in DEXTROSE 5%-WATER 150 ML IV SCH (09:16)
[2017-01-16] MEDS ORDERED: 0.9% SODIUM CHLORIDE 5 ML NEB SOLUTION NEB ONE ×3 (09:36→19:12)
[2017-01-16] MEDS: BUDESONIDE/FORMOTEROL FUMARATE 160-4.5 MCG/PUFF 6.9 GM INHALER IH SCH ×3 (09:48→20:41)
[2017-01-16] MEDS: PIOGLITAZONE HCL 15 MG TABLET PO SCH (09:48)
[2017-01-16 11:01] VITALS: BP 147/56
[2017-01-16 11:53] LABS: GLUCOSE,POINT OF CARE 202 MG/DL (70-110)
[2017-01-16 11:53] LABS: GLUCOSE,POINT OF CARE 185 MG/DL (70-110)
[2017-01-16 15:38] VITALS: BP 132/43
[2017-01-16] MEDS: LEVOFLOXACIN 500 MG/D5% WATER 100 ML IV SCH (16:39)
[2017-01-16 18:18] LABS: GLUCOSE,POINT OF CARE 212 MG/DL (70-110)
[2017-01-16] MEDS ORDERED: CLOP75 PO (18:28)
[2017-01-16] MEDS ORDERED: LEVO500P7 IV (18:29)
[2017-01-16] MEDS ORDERED: NIFE60TA71 PO (18:31)
[2017-01-16] MEDS ORDERED: METO50 PO (18:31)
[2017-01-16] MEDS ORDERED: SPIR25 PO (18:32)
[2017-01-16] MEDS ORDERED: PANT40I IV (18:32)
[2017-01-16] MEDS ORDERED: VANC500FZ IV (18:34)
[2017-01-16] MEDS ORDERED: BISA10S PR (18:35)
[2017-01-16] MEDS ORDERED: INSNOV SQ (18:37)
[2017-01-16] MEDS ORDERED: GUAIF10 PO (18:38)
[2017-01-16] MEDS ORDERED: IPRNEB IH (18:39)
[2017-01-16] MEDS ORDERED: MOM30 PO (18:40)
[2017-01-16] MEDS ORDERED: ONDA4VIA30 IV (18:41)
[2017-01-16] MEDS ORDERED: ZOLP5 PO (18:42)
[2017-01-16 19:28] VITALS: BP 145/83
[2017-01-17 00:09] VITALS: BP 137/53
[2017-01-17] MEDS: ACETAMINOPHEN 325 MG TABLET PO PRN ×3 (01:59→14:43)
[2017-01-17] MEDS: ALBUTEROL SULFATE 2.5 MG/0.5 ML NEB SOLUTION NEB SCH ×3 (02:00→14:24)
[2017-01-17 04:03] VITALS: BP 133/56
[2017-01-17] MEDS: LEVOTHYROXINE SODIUM 75 MCG TABLET PO SCH (05:42)
[2017-01-17] MEDS: INSULIN ASPART 100 UNITS/ML SQ PRN ×2 (05:51→12:21)
[2017-01-17 06:29] LABS: CREATININE 1.2 mg/dL (0.60-1.30); POTASSIUM 5.2 mmol/L (3.5-5.1)
[2017-01-17 07:24] VITALS: BP 156/68
[2017-01-17] MEDS ORDERED: 0.9% SODIUM CHLORIDE 5 ML NEB SOLUTION NEB ONE (08:06)
[2017-01-17] MEDS: VANCOMYCIN HCL 750 MG in DEXTROSE 5%-WATER 150 ML IV SCH (08:34)
[2017-01-17] MEDS: GlyBURIDE 5 MG TABLET PO SCH (08:35)
[2017-01-17] MEDS: MONTELUKAST SODIUM 10 MG TABLET PO SCH (09:07)
[2017-01-17] MEDS: CLOPIDOGREL BISULFATE 75 MG TABLET PO SCH (09:07)
[2017-01-17] MEDS: ASPIRIN 81 MG CHEWABLE TABLET PO SCH (09:07)
[2017-01-17] MEDS: LOSARTAN POTASSIUM 50 MG TABLET PO SCH (09:07)
[2017-01-17] MEDS: DOCUSATE SODIUM 100 MG CAPSULE PO SCH (09:08)
[2017-01-17] MEDS: APIXABAN 2.5 MG TABLET PO SCH (09:08)
[2017-01-17] MEDS: BUDESONIDE/FORMOTEROL FUMARATE 160-4.5 MCG/PUFF 6.9 GM INHALER IH SCH (09:08)
[2017-01-17] MEDS: HYPROMELLOSE 0.5% 15 ML OPHTHALMIC SOLUTION OU SCH (09:08)
[2017-01-17] MEDS: SPIRONOLACTONE 25 MG TABLET PO SCH (09:08)
[2017-01-17] MEDS: PANTOPRAZOLE SODIUM 40 MG/VIAL IVP SCH (09:08)
[2017-01-17] MEDS: METOPROLOL TARTRATE 50 MG TABLET PO SCH (09:08)
[2017-01-17] MEDS: NIFEdipine 60 MG ER TABLET PO SCH (09:09)
[2017-01-17] MEDS: CloNIDine HCL 0.2 MG TABLET PO SCH (09:09)
[2017-01-17] MEDS: CHOLECALCIFEROL (VIT D3) 2,000 UNITS TABLET PO SCH (09:09)
[2017-01-17] MEDS: LORATADINE 10 MG TABLET PO SCH (09:09)
[2017-01-17] MEDS: PIOGLITAZONE HCL 15 MG TABLET PO SCH (09:10)
[2017-01-17 10:55] VITALS: BP 183/71
[2017-01-17] MEDS: IPRATROPIUM BROMIDE 0.5 MG/2.5 ML NEB SOLUTION NEB PRN (14:25)
[2017-01-17 15:24] VITALS: BP 148/76
[2017-01-18 18:03] LABS: GLUCOSE,POINT OF CARE 189 MG/DL (70-110)
[2017-01-19 18:03] LABS: GLUCOSE,POINT OF CARE 172 MG/DL (70-110)
[2017-01-19 18:03] LABS: GLUCOSE,POINT OF CARE 179 MG/DL (70-110)
[2017-01-20 23:59] LABS: GLUCOSE,POINT OF CARE 212 MG/DL (70-110)
[2017-01-20 23:59] LABS: GLUCOSE,POINT OF CARE 158 MG/DL (70-110)
== END 2017-01-17 15:30 | DRG 253 ==
LOC: EMS 09:25 → AHU 13:14 → 6N 17:12 → ICU 01-13 19:46 → 5N 01-15 23:15 → 5S 01-16 17:30
PROVIDERS: ADMIT Hospitalist; ATTEND Hospitalist
PROC: B41CYZZ Fluoroscopy of Pelvic Arteries using Other Contrast (ICD-10-PCS; principal; 2017-01-13)
PROC: 047K34Z Dilation of Right Femoral Artery with Drug-eluting Intraluminal Device, Percutaneous Approach (ICD-10-PCS; 2017-01-13)
PROC: 047H34Z Dilation of Right External Iliac Artery with Drug-eluting Intraluminal Device, Percutaneous Approach (ICD-10-PCS; 2017-01-13)
PROC: B41GYZZ Fluoroscopy of Left Lower Extremity Arteries using Other Contrast (ICD-10-PCS; 2017-01-13)
PROC: 3E05317 Introduction of Other Thrombolytic into Peripheral Artery, Percutaneous Approach (ICD-10-PCS; 2017-01-13)
PROC: 30233N1 Transfusion of Nonautologous Red Blood Cells into Peripheral Vein, Percutaneous Approach (ICD-10-PCS; 2017-01-13)
DX: I72.4 Aneurysm of artery of lower extremity (principal); E87.1 Hypo-osmolality and hyponatremia; E11.51 Type 2 diabetes mellitus with diabetic peripheral angiopathy without gangrene; I48.91 Unspecified atrial fibrillation; D64.9 Anemia, unspecified; S30.1XXA Contusion of abdominal wall, initial encounter; L03.116 Cellulitis of left lower limb; I10 Essential (primary) hypertension; E03.9 Hypothyroidism, unspecified; E78.5 Hyperlipidemia, unspecified; I44.0 Atrioventricular block, first degree; J44.9 Chronic obstructive pulmonary disease, unspecified; K21.9 Gastro-esophageal reflux disease without esophagitis; Z82.49 Family history of ischemic heart disease and other diseases of the circulatory system; Z83.3 Family history of diabetes mellitus; Z88.0 Allergy status to penicillin; Z88.5 Allergy status to narcotic agent; Z88.8 Allergy status to other drugs, medicaments and biological substances; Y93.89 Activity, other specified; Y92.89 Other specified places as the place of occurrence of the external cause; Y99.8 Other external cause status
CPT/HCPCS: 36245; 75710; 76937; 82271; 82962; 83605; 84132; 84443; 85014; 85018; 85379; 86850; 86900; 86901; 86920; 87040; 87081; 93005; 93926; 93971; 94640; 96374; 96375; 97163; 97165; 97530; 99285; C9113; J1644; J1885; J1956; J2250; J2310; J2405; J2997; J3010; J3370; J3490; J7040; J7050; J7060; P9016; Q9967

== ENCOUNTER 2017-03-04 17:19 | Inpatient (IN) | payer MEDICARE, OTHER ==
[~2017-03-04] VITALS: Ht 162.6 cm; Wt 57.5 kg
[~2017-03-04 17:19] MED LIST changes: +ADV500 IH; -AMLO-511 PO; +ASPI81 PO; +ATOR40TA28 PO; +BISA10S PR; +CLOP75 PO; +GLYB5 PO; +GUAIF10 PO; +HYDR-2924 PO; +HYDR25TA PO; +INSLAN SQ; +IPRNEB IH; +LEVO500P7 IV; +METO50 PO; +MONT10TA21 PO; -NACL1 PO; +NIFE60TA71 PO; +ONDA4VIA30 IV; +PANT40I IV; +PIOG15TA6 PO; +SPIR25 PO; +VANC500FZ IV; +ZOLP5 PO
[2017-03-04] MEDS ORDERED: NITROGLYCERIN 2% (1 GM=INCH) PACKET TP ONE (18:00)
[2017-03-04] MEDS ORDERED: ASPIRIN 81 MG CHEWABLE TABLET PO ONE (18:00)
[2017-03-04 18:14] LABS: BASOPHILS % (AUTO) 0.2 % (0.0-2.0); EOSINOPHILS % (AUTO) 0.2 % (1.0-6.0); HEMOGLOBIN 11.2 g/dL (12.0-16.0); LYMPHOCYTES # (AUTO) 1.3 K/uL (1.0-4.8); LYMPHOCYTES % (AUTO) 15.8 % (22.0-44.0); MEAN CORPUSCULAR HEMOGLOBIN 25.3 pg (26.0-34.0); MEAN CORPUSCULAR HGB CONC 32.8 G/dL (31.0-37.0); MEAN CORPUSCULAR VOLUME 77 fL (80-100); MONOCYTES # (AUTO) 1.4 K/uL (0.1-1.0); NEUTROPHILS # (AUTO) 5.5 K/uL (1.8-7.7); NEUTROPHILS % (AUTO) 66.8 % (40.0-70.0); PLATELET COUNT (AUTO) 230 K/uL (150-450); RED BLOOD CELL COUNT(AUTO) 4.41 MIL/uL (4.00-5.20); RED CELL DISTRIBUTION WIDTH 18.2 % (11.5-14.5)
[2017-03-04 18:38] LABS: GLUCOSE,POINT OF CARE 280 MG/DL (70-110)
[2017-03-04 18:47] LABS: ALBUMIN 3.9 g/dL (3.4-5.0); BILIRUBIN,TOTAL 0.5 mg/dL (0.1-1.0); CALCIUM, TOTAL 8.9 mg/dL (8.8-10.5); CREATININE 1.36 mg/dL (0.60-1.30); PROTHROMBIN TIME 10.7 SEC (9.4-11.6); TOTAL PROTEIN, SERUM 8.3 g/dL (6.4-8.2)
[2017-03-04] MEDS ORDERED: SODIUM CHLORIDE 0.9% 1,000 ML IV ONE ×2 (19:00→19:45)
[2017-03-04 19:23] LABS: APPEARANCE,URINE CLEAR (CLEAR); BILIRUBIN,URINE NEGATIVE (NEGATIVE); GLUCOSE, URINE (UA) 100 mg/dL (NEGATIVE); KETONES,URINE NEGATIVE (NEGATIVE); LEUKOCYTE ESTERASE ,URINE NEGATIVE (NEGATIVE); NITRATE,URINE NEGATIVE (NEGATIVE); OCCULT BLOOD,URINE NEGATIVE (NEGATIVE); PH,URINE 6.5 (5.0-8.0); PROTEIN,URINE POS 1+ (NEGATIVE); UROBILINOGEN,URINE 0.2 mg/dL (<=1.0)
[2017-03-04 19:31] LABS: BACTERIA,URINE None Seen /HPF (None Seen); RBC,URINE 0-2 /HPF (0-2); RENAL EPITHELIAL CELLS,URINE Few /LPF (None Seen); SQUAMOUS EPITHELIAL CELL,UR Few /LPF (None Seen); WBC,URINE 0-2 /HPF (0-5)
[2017-03-04] MEDS ORDERED: 0.9% SODIUM CHLORIDE 10 ML SYRINGE IVP PRN (19:45)
[2017-03-04] MEDS ORDERED: ACETAMINOPHEN 325 MG TABLET PO PRN (19:45)
[2017-03-04] MEDS ORDERED: ONDANSETRON HCL 4 MG/2 ML VIAL IVP PRN (19:45)
[2017-03-04] MEDS ORDERED: POTASSIUM CHLORIDE 10% 40 MEQ/30 ML LIQUID UDCUP PO ONE (20:15)
[2017-03-04 20:56] VITALS: BP 168/75
[2017-03-04] MEDS ORDERED: HEPARIN SODIUM,PORCINE 5,000 UNITS/ML VIAL SQ SCH (21:00)
[2017-03-04] MEDS ORDERED: IPRATROPIUM BROMIDE 0.5 MG/2.5 ML NEB SOLUTION NEB PRN (21:15)
[2017-03-04] MEDS ORDERED: ALBUTEROL SULFATE 2.5 MG/0.5 ML NEB SOLUTION NEB PRN (21:15)
[2017-03-04] MEDS: SODIUM CHLORIDE 3% 500 ML IV SCH (23:22)
[2017-03-05] VITALS (7 sets, daily range): BP systolic 94–158; BP diastolic 41–92
[2017-03-05] MEDS: ACETAMINOPHEN 325 MG TABLET PO PRN ×4 (04:57→23:09)
[2017-03-05] MEDS ORDERED: HYDROCODONE/ACETAMINOPHEN 5-325 MG TABLET PO PRN (05:00)
[2017-03-05 08:36] LABS: % IRON SATURATION 17.3 % (22-44)
[2017-03-05] MEDS: SPIRONOLACTONE 25 MG TABLET PO SCH (09:32)
[2017-03-05] MEDS: CHOLECALCIFEROL (VIT D3) 2,000 UNITS TABLET PO SCH (09:33)
[2017-03-05] MEDS: BUDESONIDE/FORMOTEROL FUMARATE 160-4.5 MCG/PUFF 6.9 GM INHALER IH SCH ×3 (09:33→22:16)
[2017-03-05] MEDS: CLOPIDOGREL BISULFATE 75 MG TABLET PO SCH (09:33)
[2017-03-05] MEDS: NYSTATIN 15 GM POWDER BOTTLE TP SCH ×2 (09:33→22:15)
[2017-03-05] MEDS: APIXABAN 2.5 MG TABLET PO SCH ×2 (09:33→22:17)
[2017-03-05] MEDS: FLUTICASONE/SALMETEROL 500 MCG-50 MCG/INH DISKUS INHALER [28] IH SCH ×3 (09:33→22:16)
[2017-03-05] MEDS: PANTOPRAZOLE SODIUM 40 MG DR TABLET PO SCH (09:33)
[2017-03-05] MEDS: ASPIRIN 81 MG CHEWABLE TABLET PO SCH (09:33)
[2017-03-05] MEDS: HYPROMELLOSE 0.5% 15 ML OPHTHALMIC SOLUTION OU SCH ×2 (09:34→22:15)
[2017-03-05] MEDS: CloNIDine HCL 0.2 MG TABLET PO SCH ×3 (09:34→21:00)
[2017-03-05] MEDS: NIFEdipine 60 MG ER TABLET PO SCH (09:35)
[2017-03-05] MEDS: MONTELUKAST SODIUM 10 MG TABLET PO SCH (09:35)
[2017-03-05] MEDS: SODIUM CHLORIDE 1 GM TABLET PO SCH ×2 (13:03→18:32)
[2017-03-05] MEDS: METOPROLOL TARTRATE 50 MG TABLET PO SCH (13:04)
[2017-03-05] MEDS: SODIUM CHLORIDE 3% 500 ML IV SCH (15:44)
[2017-03-05] MEDS: ZOLPIDEM TARTRATE 5 MG TABLET PO SCH ×2 (21:00→22:16)
[2017-03-06] MEDS: SODIUM CHLORIDE 1 GM TABLET PO SCH ×4 (00:25→23:37)
[2017-03-06 03:53] VITALS: BP 133/56
[2017-03-06 05:13] LABS: GLUCOMETER DEV NAME(LOC) 5S 2N; GLUCOSE,POINT OF CARE 279 MG/DL (70-110)
[2017-03-06 07:19] LABS: BASOPHILS # (AUTO) 0.03 K/uL (0.00-0.20); BASOPHILS % (AUTO) 0.5 % (0.0-2.0); EOSINOPHILS # (AUTO) 0.06 K/uL (0.00-0.70); EOSINOPHILS % (AUTO) 1.34 % (1.0-6.0); HEMATOCRIT 26.6 % (36-46); HEMOGLOBIN 8.7 g/dL (12.0-16.0); LYMPHOCYTES # (AUTO) 0.7 K/uL (1.0-4.8); LYMPHOCYTES % (AUTO) 14.1 % (22.0-44.0); MEAN CORPUSCULAR HGB CONC 32.8 G/dL (31.0-37.0); MEAN CORPUSCULAR VOLUME 76 fL (80-100); MONOCYTES # (AUTO) 0.8 K/uL (0.1-1.0); MONOCYTES % (AUTO) 16.1 % (2.0-9.0); NEUTROPHILS # (AUTO) 3.2 K/uL (1.8-7.7); NEUTROPHILS % (AUTO) 67.9 % (40.0-70.0); PLATELET COUNT (AUTO) 157 K/uL (150-450); RED BLOOD CELL COUNT(AUTO) 3.49 MIL/uL (4.00-5.20); RED CELL DISTRIBUTION WIDTH 18.2 % (11.5-14.5)
[2017-03-06 07:29] LABS: ALBUMIN 3.1 g/dL (3.4-5.0); BILIRUBIN,TOTAL 0.3 mg/dL (0.1-1.0); CALCIUM, TOTAL 8.5 mg/dL (8.8-10.5); CREATININE 1.02 mg/dL (0.60-1.30); MAGNESIUM 2.1 mg/dL (1.80-2.40); POTASSIUM 4.4 mmol/L (3.5-5.1); TOTAL PROTEIN, SERUM 6.6 g/dL (6.4-8.2)
[2017-03-06 07:32] VITALS: BP 126/50
[2017-03-06] MEDS: BUDESONIDE/FORMOTEROL FUMARATE 160-4.5 MCG/PUFF 6.9 GM INHALER IH SCH ×2 (08:31→22:06)
[2017-03-06] MEDS: FLUTICASONE/SALMETEROL 500 MCG-50 MCG/INH DISKUS INHALER [28] IH SCH ×2 (08:31→22:06)
[2017-03-06] MEDS: NYSTATIN 15 GM POWDER BOTTLE TP SCH ×2 (08:32→22:06)
[2017-03-06] MEDS: HYPROMELLOSE 0.5% 15 ML OPHTHALMIC SOLUTION OU SCH ×2 (08:33→22:06)
[2017-03-06] MEDS: CLOPIDOGREL BISULFATE 75 MG TABLET PO SCH (08:34)
[2017-03-06] MEDS: APIXABAN 2.5 MG TABLET PO SCH ×2 (08:34→22:07)
[2017-03-06] MEDS: SPIRONOLACTONE 25 MG TABLET PO SCH (08:34)
[2017-03-06] MEDS: MONTELUKAST SODIUM 10 MG TABLET PO SCH (08:35)
[2017-03-06] MEDS: ASPIRIN 81 MG CHEWABLE TABLET PO SCH (08:35)
[2017-03-06] MEDS: NIFEdipine 60 MG ER TABLET PO SCH (08:35)
[2017-03-06] MEDS: METOPROLOL TARTRATE 50 MG TABLET PO SCH (08:36)
[2017-03-06] MEDS: CHOLECALCIFEROL (VIT D3) 2,000 UNITS TABLET PO SCH (08:36)
[2017-03-06] MEDS: CloNIDine HCL 0.2 MG TABLET PO SCH ×3 (08:36→22:07)
[2017-03-06] MEDS: PANTOPRAZOLE SODIUM 40 MG DR TABLET PO SCH (08:36)
[2017-03-06] MEDS: ACETAMINOPHEN 325 MG TABLET PO PRN ×2 (08:38→14:43)
[2017-03-06 11:12] VITALS: BP 122/59
[2017-03-06] MEDS ORDERED: INSULIN ASPART 100 UNITS/ML SQ PRN (12:30)
[2017-03-06] MEDS ORDERED: DEXTROSE 50%-WATER 25 GM/50 ML SYRINGE IVP PRN ×2 (12:30)
[2017-03-06 15:52] VITALS: BP 118/58
[2017-03-06] MEDS: INSULIN ASPART 100 UNITS/ML SQ PRN ×2 (18:32→22:10)
[2017-03-06 19:12] VITALS: BP 122/44
[2017-03-06 19:58] LABS: GLUCOMETER DEV NAME(LOC) 5N 1M; GLUCOSE,POINT OF CARE 242 MG/DL (70-110)
[2017-03-06] MEDS: ZOLPIDEM TARTRATE 5 MG TABLET PO SCH (22:07)
[2017-03-06] MEDS: INSULIN DETEMIR 100 UNITS/ML SQ SCH (22:09)
[2017-03-06 23:31] VITALS: BP 132/52
[2017-03-07 04:05] VITALS: BP 138/50
[2017-03-07 05:08] LABS: GLUCOMETER DEV NAME(LOC) 5S 2N; GLUCOSE,POINT OF CARE 215 MG/DL (70-110)
[2017-03-07 05:12] LABS: GLUCOMETER DEV NAME(LOC) 5S 2N; GLUCOSE,POINT OF CARE 289 MG/DL (70-110)
[2017-03-07] MEDS: INSULIN ASPART 100 UNITS/ML SQ PRN ×3 (05:56→19:57)
[2017-03-07] MEDS: ACETAMINOPHEN 325 MG TABLET PO PRN ×2 (06:36→19:53)
[2017-03-07 07:20] VITALS: BP 135/50
[2017-03-07] MEDS: ASPIRIN 81 MG CHEWABLE TABLET PO SCH (08:38)
[2017-03-07] MEDS: NYSTATIN 15 GM POWDER BOTTLE TP SCH ×2 (08:38→19:58)
[2017-03-07] MEDS: CLOPIDOGREL BISULFATE 75 MG TABLET PO SCH (08:38)
[2017-03-07] MEDS: HYPROMELLOSE 0.5% 15 ML OPHTHALMIC SOLUTION OU SCH ×2 (08:38→19:52)
[2017-03-07] MEDS: NIFEdipine 60 MG ER TABLET PO SCH (08:38)
[2017-03-07] MEDS: SPIRONOLACTONE 25 MG TABLET PO SCH (08:38)
[2017-03-07] MEDS: PANTOPRAZOLE SODIUM 40 MG DR TABLET PO SCH (08:38)
[2017-03-07] MEDS: MONTELUKAST SODIUM 10 MG TABLET PO SCH (08:42)
[2017-03-07] MEDS: CloNIDine HCL 0.2 MG TABLET PO SCH ×4 (08:42→20:09)
[2017-03-07] MEDS: SODIUM CHLORIDE 1 GM TABLET PO SCH ×2 (08:42→16:22)
[2017-03-07] MEDS: APIXABAN 2.5 MG TABLET PO SCH ×2 (08:42→19:52)
[2017-03-07] MEDS: FLUTICASONE/SALMETEROL 500 MCG-50 MCG/INH DISKUS INHALER [28] IH SCH ×2 (08:43→19:52)
[2017-03-07] MEDS: BUDESONIDE/FORMOTEROL FUMARATE 160-4.5 MCG/PUFF 6.9 GM INHALER IH SCH ×2 (08:43→19:52)
[2017-03-07] MEDS: CHOLECALCIFEROL (VIT D3) 2,000 UNITS TABLET PO SCH (08:47)
[2017-03-07] MEDS: INSULIN DETEMIR 100 UNITS/ML SQ SCH ×2 (08:53→19:56)
[2017-03-07] MEDS ORDERED: IBUPROFEN 400 MG TABLET PO PRN (11:30)
[2017-03-07 11:48] VITALS: BP 139/55
[2017-03-07] MEDS: METOPROLOL TARTRATE 50 MG TABLET PO SCH (12:25)
[2017-03-07 15:35] VITALS: BP 125/46
[2017-03-07 19:25] VITALS: BP 128/55
[2017-03-07 19:53] LABS: GLUCOMETER DEV NAME(LOC) 5N 1M; GLUCOSE,POINT OF CARE 314 MG/DL (70-110)
[2017-03-07] MEDS: ZOLPIDEM TARTRATE 5 MG TABLET PO SCH (19:53)
[2017-03-07 19:54] LABS: GLUCOMETER DEV NAME(LOC) 5N 1M; GLUCOSE,POINT OF CARE 140 MG/DL (70-110)
[2017-03-07 19:55] LABS: GLUCOMETER DEV NAME(LOC) 5N 1M; GLUCOSE,POINT OF CARE 243 MG/DL (70-110)
[2017-03-08] VITALS (7 sets, daily range): BP systolic 136–150; BP diastolic 52–64
[2017-03-08] MEDS: SODIUM CHLORIDE 1 GM TABLET PO SCH ×3 (01:13→16:00)
[2017-03-08] MEDS: INSULIN ASPART 100 UNITS/ML SQ PRN ×4 (06:54→21:03)
[2017-03-08] MEDS: BUDESONIDE/FORMOTEROL FUMARATE 160-4.5 MCG/PUFF 6.9 GM INHALER IH SCH ×3 (09:05→21:00)
[2017-03-08] MEDS: HYPROMELLOSE 0.5% 15 ML OPHTHALMIC SOLUTION OU SCH ×2 (09:05→20:55)
[2017-03-08] MEDS: FLUTICASONE/SALMETEROL 500 MCG-50 MCG/INH DISKUS INHALER [28] IH SCH ×3 (09:05→21:00)
[2017-03-08] MEDS: MONTELUKAST SODIUM 10 MG TABLET PO SCH (09:05)
[2017-03-08] MEDS: CHOLECALCIFEROL (VIT D3) 2,000 UNITS TABLET PO SCH (09:06)
[2017-03-08] MEDS: PANTOPRAZOLE SODIUM 40 MG DR TABLET PO SCH (09:06)
[2017-03-08] MEDS: NIFEdipine 60 MG ER TABLET PO SCH (09:06)
[2017-03-08] MEDS: CLOPIDOGREL BISULFATE 75 MG TABLET PO SCH (09:07)
[2017-03-08] MEDS: APIXABAN 2.5 MG TABLET PO SCH ×2 (09:07→20:54)
[2017-03-08] MEDS: ASPIRIN 81 MG CHEWABLE TABLET PO SCH (09:07)
[2017-03-08] MEDS: METOPROLOL TARTRATE 50 MG TABLET PO SCH (09:07)
[2017-03-08] MEDS: SPIRONOLACTONE 25 MG TABLET PO SCH (09:07)
[2017-03-08] MEDS: NYSTATIN 15 GM POWDER BOTTLE TP SCH ×2 (09:09→20:56)
[2017-03-08] MEDS: INSULIN DETEMIR 100 UNITS/ML SQ SCH ×2 (09:09→21:03)
[2017-03-08] MEDS: ACETAMINOPHEN 325 MG TABLET PO PRN ×3 (09:15→21:02)
[2017-03-08 11:34] LABS: ANION GAP 5 mmol/L (8-16); CALCIUM, TOTAL 8.4 mg/dL (8.8-10.5); CARBON DIOXIDE 29 mmol/L (22-29); CHLORIDE 91 mmol/L (98-107); CREATININE 0.74 mg/dL (0.60-1.30); GLOMERULAR FILTR. RATE CALC > 60 mL/min (>60); GLUCOSE,RANDOM 258 mg/dL (70-110); PHOSPHORUS 3.6 mg/dL (2.5-4.9); POTASSIUM 4.7 mmol/L (3.5-5.1); SODIUM SERUM 125 mmol/L (136-145); UREA NITROGEN, BLOOD 17 mg/dL (7-18)
[2017-03-08] MEDS ORDERED: MAGNESIUM SULFATE 4 GM/WATER 100 ML IV PRN (11:45)
[2017-03-08] MEDS ORDERED: MAGNESIUM SULFATE 2 GM in DEXTROSE 5%-WATER 50 ML IV PRN (11:45)
[2017-03-08 12:00] LABS: ALBUMIN 2.9 g/dL (3.4-5.0)
[2017-03-08] MEDS: CloNIDine HCL 0.2 MG TABLET PO SCH ×3 (12:13→20:54)
[2017-03-08] MEDS ORDERED: TOLVAPTAN 15 MG TABLET PO ONE (13:00)
[2017-03-08] MEDS: MAGNESIUM OXIDE 400 MG TABLET PO PRN ×3 (14:30→20:53)
[2017-03-08 19:43] LABS: SODIUM,URINE RANDOM 42 mmol/l (20-110)
[2017-03-08 19:55] LABS: OSMOLALITY,URINE 397 mOS/kg (50-1200)
[2017-03-08] MEDS: ZOLPIDEM TARTRATE 5 MG TABLET PO SCH (20:53)
[2017-03-09] MEDS: SODIUM CHLORIDE 1 GM TABLET PO SCH ×2 (00:10→08:03)
[2017-03-09 04:38] VITALS: BP 149/53
[2017-03-09] MEDS: INSULIN ASPART 100 UNITS/ML SQ PRN ×4 (06:38→20:21)
[2017-03-09 06:51] LABS: ANION GAP 5 mmol/L (8-16); CALCIUM, TOTAL 8.7 mg/dL (8.8-10.5); CARBON DIOXIDE 29 mmol/L (22-29); CHLORIDE 94 mmol/L (98-107); CREATININE 0.77 mg/dL (0.60-1.30); GLOMERULAR FILTR. RATE CALC > 60 mL/min (>60); GLUCOSE,RANDOM 181 mg/dL (70-110); PHOSPHORUS 3.9 mg/dL (2.5-4.9); POTASSIUM 4.6 mmol/L (3.5-5.1); SODIUM SERUM 128 mmol/L (136-145); THYROID STIMULATING HORMONE 7.25 uIU/mL (0.36-3.74); UREA NITROGEN, BLOOD 15 mg/dL (7-18)
[2017-03-09 07:38] VITALS: BP 153/56
[2017-03-09] MEDS: METOPROLOL TARTRATE 50 MG TABLET PO SCH (08:02)
[2017-03-09] MEDS: ACETAMINOPHEN 325 MG TABLET PO PRN ×3 (08:02→20:15)
[2017-03-09] MEDS: BUDESONIDE/FORMOTEROL FUMARATE 160-4.5 MCG/PUFF 6.9 GM INHALER IH SCH ×2 (08:03→20:13)
[2017-03-09] MEDS: ASPIRIN 81 MG CHEWABLE TABLET PO SCH (08:03)
[2017-03-09] MEDS: CLOPIDOGREL BISULFATE 75 MG TABLET PO SCH (08:03)
[2017-03-09] MEDS: SPIRONOLACTONE 25 MG TABLET PO SCH (08:03)
[2017-03-09] MEDS: FLUTICASONE/SALMETEROL 500 MCG-50 MCG/INH DISKUS INHALER [28] IH SCH ×2 (08:03→20:13)
[2017-03-09] MEDS: PANTOPRAZOLE SODIUM 40 MG DR TABLET PO SCH (08:03)
[2017-03-09] MEDS: APIXABAN 2.5 MG TABLET PO SCH ×2 (08:04→20:09)
[2017-03-09] MEDS: HYPROMELLOSE 0.5% 15 ML OPHTHALMIC SOLUTION OU SCH ×2 (08:04→20:09)
[2017-03-09] MEDS: CloNIDine HCL 0.2 MG TABLET PO SCH ×3 (08:04→20:10)
[2017-03-09] MEDS: CHOLECALCIFEROL (VIT D3) 2,000 UNITS TABLET PO SCH (08:05)
[2017-03-09] MEDS: NYSTATIN 15 GM POWDER BOTTLE TP SCH ×2 (08:05→20:10)
[2017-03-09] MEDS: NIFEdipine 60 MG ER TABLET PO SCH (08:05)
[2017-03-09] MEDS: INSULIN DETEMIR 100 UNITS/ML SQ SCH ×2 (08:07→20:22)
[2017-03-09] MEDS: MONTELUKAST SODIUM 10 MG TABLET PO SCH (08:14)
[2017-03-09] MEDS ORDERED: TOLVAPTAN 15 MG TABLET PO ONE (08:45)
[2017-03-09 11:46] VITALS: BP 153/61
[2017-03-09 15:53] VITALS: BP 130/45
[2017-03-09 19:25] VITALS: BP 129/58
[2017-03-09 19:53] LABS: GLUCOMETER DEV NAME(LOC) 5N 1M; GLUCOSE,POINT OF CARE 258 MG/DL (70-110)
[2017-03-09 19:53] LABS: GLUCOMETER DEV NAME(LOC) 5N 1M; GLUCOSE,POINT OF CARE 185 MG/DL (70-110)
[2017-03-09 19:53] LABS: GLUCOMETER DEV NAME(LOC) 5N 1M; GLUCOSE,POINT OF CARE 166 MG/DL (70-110)
[2017-03-09] MEDS: ZOLPIDEM TARTRATE 5 MG TABLET PO SCH (20:09)
[2017-03-09 22:37] LABS: GLUCOMETER DEV NAME(LOC) 5S 2N; GLUCOSE,POINT OF CARE 225 MG/DL (70-110)
[2017-03-09 22:37] LABS: GLUCOMETER DEV NAME(LOC) 5S 2N; GLUCOSE,POINT OF CARE 315 MG/DL (70-110)
[2017-03-09 22:38] LABS: GLUCOMETER DEV NAME(LOC) 5S 2N; GLUCOSE,POINT OF CARE 150 MG/DL (70-110)
[2017-03-09 22:38] LABS: GLUCOMETER DEV NAME(LOC) 5S 2N; GLUCOSE,POINT OF CARE 282 MG/DL (70-110)
[2017-03-10] VITALS (11 sets, daily range): BP systolic 135–189; BP diastolic 44–68
[2017-03-10] MEDS: ACETAMINOPHEN 325 MG TABLET PO PRN ×4 (04:55→20:19)
[2017-03-10 05:18] LABS: GLUCOMETER DEV NAME(LOC) 5S 1L; GLUCOSE,POINT OF CARE 275 MG/DL (70-110)
[2017-03-10 05:19] LABS: GLUCOMETER DEV NAME(LOC) 5S 1L; GLUCOSE,POINT OF CARE 231 MG/DL (70-110)
[2017-03-10 05:19] LABS: GLUCOMETER DEV NAME(LOC) 5S 1L; GLUCOSE,POINT OF CARE 308 MG/DL (70-110)
[2017-03-10] MEDS: LABETALOL HCL 5 MG/ML 20 ML VIAL IVP PRN ×2 (05:38→09:49)
[2017-03-10] MEDS: INSULIN ASPART 100 UNITS/ML SQ PRN ×4 (05:47→21:05)
[2017-03-10 07:50] LABS: ANION GAP 7 mmol/L (8-16); CALCIUM, TOTAL 9.2 mg/dL (8.8-10.5); CARBON DIOXIDE 27 mmol/L (22-29); CHLORIDE 93 mmol/L (98-107); CREATININE 0.65 mg/dL (0.60-1.30); FREE T4 (FREE THYROXINE) 1.18 ng/dL (0.76-1.46); GLOMERULAR FILTR. RATE CALC > 60 mL/min (>60); GLUCOSE,RANDOM 150 mg/dL (70-110); POTASSIUM 5.1 mmol/L (3.5-5.1); SODIUM SERUM 127 mmol/L (136-145); UREA NITROGEN, BLOOD 17 mg/dL (7-18)
[2017-03-10] MEDS ORDERED: TOLVAPTAN 15 MG TABLET PO ONE (08:15)
[2017-03-10] MEDS: CLOPIDOGREL BISULFATE 75 MG TABLET PO SCH (08:26)
[2017-03-10] MEDS: SPIRONOLACTONE 25 MG TABLET PO SCH (08:26)
[2017-03-10] MEDS: METOPROLOL TARTRATE 50 MG TABLET PO SCH (08:26)
[2017-03-10] MEDS: MONTELUKAST SODIUM 10 MG TABLET PO SCH (08:26)
[2017-03-10] MEDS: FLUTICASONE/SALMETEROL 500 MCG-50 MCG/INH DISKUS INHALER [28] IH SCH ×2 (08:27→21:00)
[2017-03-10] MEDS: BUDESONIDE/FORMOTEROL FUMARATE 160-4.5 MCG/PUFF 6.9 GM INHALER IH SCH ×2 (08:27→21:00)
[2017-03-10] MEDS: PANTOPRAZOLE SODIUM 40 MG DR TABLET PO SCH (08:27)
[2017-03-10] MEDS: ASPIRIN 81 MG CHEWABLE TABLET PO SCH (08:27)
[2017-03-10] MEDS: HYPROMELLOSE 0.5% 15 ML OPHTHALMIC SOLUTION OU SCH ×2 (08:28→20:19)
[2017-03-10] MEDS: APIXABAN 2.5 MG TABLET PO SCH ×2 (08:28→20:19)
[2017-03-10] MEDS: CloNIDine HCL 0.2 MG TABLET PO SCH ×3 (08:28→20:21)
[2017-03-10] MEDS: CHOLECALCIFEROL (VIT D3) 2,000 UNITS TABLET PO SCH (08:29)
[2017-03-10] MEDS: NIFEdipine 60 MG ER TABLET PO SCH (08:29)
[2017-03-10] MEDS: INSULIN DETEMIR 100 UNITS/ML SQ SCH ×2 (08:31→21:04)
[2017-03-10] MEDS: NYSTATIN 15 GM POWDER BOTTLE TP SCH ×2 (08:32→20:25)
[2017-03-10] MEDS ORDERED: HYDROmorphone 2 MG/ML SYRINGE IVP PRN (11:00)
[2017-03-10] MEDS: MAGNESIUM OXIDE 400 MG TABLET PO PRN ×3 (12:13→21:06)
[2017-03-10] MEDS: HydrALAZINE HCL 25 MG TABLET PO SCH ×3 (12:13→23:44)
[2017-03-10] MEDS: ZOLPIDEM TARTRATE 5 MG TABLET PO SCH (21:00)
[2017-03-11] VITALS (8 sets, daily range): BP systolic 141–182; BP diastolic 54–63
[2017-03-11] MEDS: ACETAMINOPHEN 325 MG TABLET PO PRN ×4 (02:29→18:52)
[2017-03-11] MEDS: INSULIN ASPART 100 UNITS/ML SQ PRN ×4 (06:14→20:37)
[2017-03-11 06:52] LABS: ANION GAP 5 mmol/L (8-16); CALCIUM, TOTAL 8.7 mg/dL (8.8-10.5); CARBON DIOXIDE 29 mmol/L (22-29); CHLORIDE 93 mmol/L (98-107); CREATININE 0.73 mg/dL (0.60-1.30); GLOMERULAR FILTR. RATE CALC > 60 mL/min (>60); GLUCOSE,RANDOM 230 mg/dL (70-110); PHOSPHORUS 4.7 mg/dL (2.5-4.9); POTASSIUM 5.3 mmol/L (3.5-5.1); SODIUM SERUM 127 mmol/L (136-145); UREA NITROGEN, BLOOD 26 mg/dL (7-18)
[2017-03-11] MEDS: METOPROLOL TARTRATE 50 MG TABLET PO SCH (07:53)
[2017-03-11] MEDS: PANTOPRAZOLE SODIUM 40 MG DR TABLET PO SCH (07:53)
[2017-03-11] MEDS: CloNIDine HCL 0.2 MG TABLET PO SCH ×3 (07:54→20:30)
[2017-03-11] MEDS: FLUTICASONE/SALMETEROL 500 MCG-50 MCG/INH DISKUS INHALER [28] IH SCH ×2 (07:57→20:38)
[2017-03-11] MEDS: HYPROMELLOSE 0.5% 15 ML OPHTHALMIC SOLUTION OU SCH ×2 (07:58→20:30)
[2017-03-11] MEDS: BUDESONIDE/FORMOTEROL FUMARATE 160-4.5 MCG/PUFF 6.9 GM INHALER IH SCH ×2 (07:58→20:38)
[2017-03-11] MEDS: ASPIRIN 81 MG CHEWABLE TABLET PO SCH (08:00)
[2017-03-11] MEDS: SPIRONOLACTONE 25 MG TABLET PO SCH (08:00)
[2017-03-11] MEDS: HydrALAZINE HCL 25 MG TABLET PO SCH (08:01)
[2017-03-11] MEDS: MONTELUKAST SODIUM 10 MG TABLET PO SCH (08:01)
[2017-03-11] MEDS: CHOLECALCIFEROL (VIT D3) 2,000 UNITS TABLET PO SCH (08:01)
[2017-03-11] MEDS: APIXABAN 2.5 MG TABLET PO SCH ×2 (08:01→20:30)
[2017-03-11] MEDS: CLOPIDOGREL BISULFATE 75 MG TABLET PO SCH (08:01)
[2017-03-11] MEDS: NYSTATIN 15 GM POWDER BOTTLE TP SCH ×2 (08:01→20:37)
[2017-03-11] MEDS: NIFEdipine 60 MG ER TABLET PO SCH (08:01)
[2017-03-11] MEDS ORDERED: SODIUM POLYSTYRENE SULFONATE 15 GM/60 ML SUSPENSION BOTTLE PO ONE (08:30)
[2017-03-11] MEDS: SODIUM CHLORIDE 1 GM TABLET PO SCH ×3 (09:17→17:21)
[2017-03-11] MEDS: INSULIN DETEMIR 100 UNITS/ML SQ SCH ×2 (09:19→20:37)
[2017-03-11] MEDS: AmLODIPine BESYLATE 2.5 MG TABLET PO SCH (14:29)
[2017-03-11] MEDS: HydrALAZINE HCL 50 MG TABLET PO SCH (16:44)
[2017-03-11 20:02] LABS: GLUCOMETER DEV NAME(LOC) 5S 2N; GLUCOSE,POINT OF CARE 254 MG/DL (70-110)
[2017-03-11 20:02] LABS: GLUCOMETER DEV NAME(LOC) 5S 2N; GLUCOSE,POINT OF CARE 223 MG/DL (70-110)
[2017-03-11 20:02] LABS: GLUCOMETER DEV NAME(LOC) 5S 2N; GLUCOSE,POINT OF CARE 187 MG/DL (70-110)
[2017-03-11] MEDS: ZOLPIDEM TARTRATE 5 MG TABLET PO SCH (20:30)
[2017-03-11 21:43] LABS: GLUCOMETER DEV NAME(LOC) 5S 1L; GLUCOSE,POINT OF CARE 258 MG/DL (70-110)
[2017-03-11 21:43] LABS: GLUCOMETER DEV NAME(LOC) 5S 1L; GLUCOSE,POINT OF CARE 297 MG/DL (70-110)
[2017-03-11 21:43] LABS: GLUCOMETER DEV NAME(LOC) 5S 1L; GLUCOSE,POINT OF CARE 310 MG/DL (70-110)
[2017-03-11 21:43] LABS: GLUCOMETER DEV NAME(LOC) 5S 1L; GLUCOSE,POINT OF CARE 167 MG/DL (70-110)
[2017-03-11 22:28] LABS: GLUCOMETER DEV NAME(LOC) 5S 2N; GLUCOSE,POINT OF CARE 242 MG/DL (70-110)
[2017-03-12] MEDS: ACETAMINOPHEN 325 MG TABLET PO PRN ×4 (01:38→17:23)
[2017-03-12 04:18] VITALS: BP 157/59
[2017-03-12 05:57] LABS: BASOPHILS % (AUTO) 0.6 % (0.0-2.0); HEMATOCRIT 27.6 % (36-46); HEMOGLOBIN 8.8 g/dL (12.0-16.0); LYMPHOCYTES # (AUTO) 1.5 K/uL (1.0-4.8); MEAN CORPUSCULAR HEMOGLOBIN 24.9 pg (26.0-34.0); MEAN CORPUSCULAR HGB CONC 32.1 G/dL (31.0-37.0); MEAN CORPUSCULAR VOLUME 78 fL (80-100); MONOCYTES # (AUTO) 0.8 K/uL (0.1-1.0); MONOCYTES % (AUTO) 10.6 % (2.0-9.0); NEUTROPHILS % (AUTO) 66.8 % (40.0-70.0); PLATELET COUNT (AUTO) 142 K/uL (150-450); RED BLOOD CELL COUNT(AUTO) 3.55 MIL/uL (4.00-5.20); RED CELL DISTRIBUTION WIDTH 18.5 % (11.5-14.5)
[2017-03-12] MEDS: SODIUM CHLORIDE 1 GM TABLET PO SCH ×4 (06:03→17:27)
[2017-03-12] MEDS: INSULIN ASPART 100 UNITS/ML SQ PRN ×4 (06:08→20:17)
[2017-03-12 06:19] LABS: ALBUMIN 2.8 g/dL (3.4-5.0); BILIRUBIN,TOTAL 0.3 mg/dL (0.1-1.0); CALCIUM, TOTAL 8.7 mg/dL (8.8-10.5); CREATININE 0.93 mg/dL (0.60-1.30); MAGNESIUM 1.9 mg/dL (1.80-2.40); PHOSPHORUS 4.1 mg/dL (2.5-4.9); POTASSIUM 4.9 mmol/L (3.5-5.1); TOTAL PROTEIN, SERUM 6.9 g/dL (6.4-8.2)
[2017-03-12 07:34] VITALS: BP 155/62
[2017-03-12] MEDS: NYSTATIN 15 GM POWDER BOTTLE TP SCH ×2 (07:34→20:15)
[2017-03-12] MEDS: HYPROMELLOSE 0.5% 15 ML OPHTHALMIC SOLUTION OU SCH ×2 (07:35→20:17)
[2017-03-12] MEDS ORDERED: TOLVAPTAN 15 MG TABLET PO ONE (08:00)
[2017-03-12] MEDS: ASPIRIN 81 MG CHEWABLE TABLET PO SCH (08:02)
[2017-03-12] MEDS: METOPROLOL TARTRATE 50 MG TABLET PO SCH (08:02)
[2017-03-12] MEDS: HydrALAZINE HCL 50 MG TABLET PO SCH ×4 (08:03→17:24)
[2017-03-12] MEDS: MONTELUKAST SODIUM 10 MG TABLET PO SCH (08:03)
[2017-03-12] MEDS: BUDESONIDE/FORMOTEROL FUMARATE 160-4.5 MCG/PUFF 6.9 GM INHALER IH SCH ×2 (08:10→20:17)
[2017-03-12] MEDS: FLUTICASONE/SALMETEROL 500 MCG-50 MCG/INH DISKUS INHALER [28] IH SCH ×2 (08:10→20:17)
[2017-03-12] MEDS: CLOPIDOGREL BISULFATE 75 MG TABLET PO SCH (10:26)
[2017-03-12] MEDS: AmLODIPine BESYLATE 2.5 MG TABLET PO SCH (10:26)
[2017-03-12] MEDS: PANTOPRAZOLE SODIUM 40 MG DR TABLET PO SCH (10:26)
[2017-03-12] MEDS: CHOLECALCIFEROL (VIT D3) 2,000 UNITS TABLET PO SCH (10:26)
[2017-03-12] MEDS: CloNIDine HCL 0.2 MG TABLET PO SCH ×4 (10:26→20:14)
[2017-03-12] MEDS: APIXABAN 2.5 MG TABLET PO SCH ×2 (10:26→20:12)
[2017-03-12] MEDS: NIFEdipine 60 MG ER TABLET PO SCH (10:27)
[2017-03-12] MEDS: INSULIN DETEMIR 100 UNITS/ML SQ SCH ×2 (10:35→20:16)
[2017-03-12 11:14] VITALS: BP 158/57
[2017-03-12 17:18] VITALS: BP 148/62
[2017-03-12 17:30] VITALS: BP 126/50
[2017-03-12 17:33] LABS: GLUCOMETER DEV NAME(LOC) 5S 2N; GLUCOSE,POINT OF CARE 167 MG/DL (70-110)
[2017-03-12 19:52] VITALS: BP 133/50
[2017-03-12] MEDS: ZOLPIDEM TARTRATE 5 MG TABLET PO SCH (20:12)
[2017-03-12 20:33] LABS: GLUCOMETER DEV NAME(LOC) 5S 1L; GLUCOSE,POINT OF CARE 253 MG/DL (70-110)
[2017-03-12 20:33] LABS: GLUCOMETER DEV NAME(LOC) 5S 1L; GLUCOSE,POINT OF CARE 278 MG/DL (70-110)
[2017-03-13 00:45] VITALS: BP 149/61
[2017-03-13] MEDS: SODIUM CHLORIDE 1 GM TABLET PO SCH ×4 (00:45→17:28)
[2017-03-13] MEDS: HydrALAZINE HCL 50 MG TABLET PO SCH ×3 (00:45→15:35)
[2017-03-13] MEDS: ACETAMINOPHEN 325 MG TABLET PO PRN ×4 (00:45→15:06)
[2017-03-13 03:12] LABS: GLUCOMETER DEV NAME(LOC) 5S 2N; GLUCOSE,POINT OF CARE 210 MG/DL (70-110)
[2017-03-13 05:18] VITALS: BP 164/72
[2017-03-13 07:38] VITALS: BP 172/65
[2017-03-13] MEDS: HYPROMELLOSE 0.5% 15 ML OPHTHALMIC SOLUTION OU SCH (08:17)
[2017-03-13] MEDS: CloNIDine HCL 0.2 MG TABLET PO SCH ×2 (08:17→15:35)
[2017-03-13] MEDS: BUDESONIDE/FORMOTEROL FUMARATE 160-4.5 MCG/PUFF 6.9 GM INHALER IH SCH (08:17)
[2017-03-13] MEDS: FLUTICASONE/SALMETEROL 500 MCG-50 MCG/INH DISKUS INHALER [28] IH SCH (08:17)
[2017-03-13] MEDS: APIXABAN 2.5 MG TABLET PO SCH (08:18)
[2017-03-13] MEDS: METOPROLOL TARTRATE 50 MG TABLET PO SCH (08:18)
[2017-03-13] MEDS: CLOPIDOGREL BISULFATE 75 MG TABLET PO SCH (08:19)
[2017-03-13] MEDS: MONTELUKAST SODIUM 10 MG TABLET PO SCH (08:19)
[2017-03-13] MEDS: PANTOPRAZOLE SODIUM 40 MG DR TABLET PO SCH (08:19)
[2017-03-13] MEDS: NYSTATIN 15 GM POWDER BOTTLE TP SCH (08:20)
[2017-03-13] MEDS: CHOLECALCIFEROL (VIT D3) 2,000 UNITS TABLET PO SCH (08:20)
[2017-03-13] MEDS: INSULIN DETEMIR 100 UNITS/ML SQ SCH (08:22)
[2017-03-13 08:50] LABS: ANION GAP 7 mmol/L (8-16); CALCIUM, TOTAL 9.1 mg/dL (8.8-10.5); CARBON DIOXIDE 29 mmol/L (22-29); CHLORIDE 96 mmol/L (98-107); CREATININE 0.77 mg/dL (0.60-1.30); GLOMERULAR FILTR. RATE CALC > 60 mL/min (>60); GLUCOSE,RANDOM 179 mg/dL (70-110); POTASSIUM 4.7 mmol/L (3.5-5.1); SODIUM SERUM 132 mmol/L (136-145); UREA NITROGEN, BLOOD 23 mg/dL (7-18)
[2017-03-13 09:54] VITALS: BP 140/56
[2017-03-13] MEDS: AmLODIPine BESYLATE 2.5 MG TABLET PO SCH (09:55)
[2017-03-13] MEDS: NIFEdipine 60 MG ER TABLET PO SCH (09:55)
[2017-03-13] MEDS: GuaiFENesin [SUGAR-FREE] 200 MG/10 ML SOLUTION UDCUP PO PRN ×2 (09:56→17:28)
[2017-03-13] MEDS: INSULIN ASPART 100 UNITS/ML SQ PRN ×2 (12:14→17:29)
[2017-03-13] MEDS ORDERED: IPRA4AER IH (14:25)
[2017-03-13] MEDS ORDERED: ALBU2.5V2 IH (14:28)
[2017-03-13 14:48] LABS: GLUCOMETER DEV NAME(LOC) 5S 1L; GLUCOSE,POINT OF CARE 248 MG/DL (70-110)
[2017-03-13 14:48] LABS: GLUCOMETER DEV NAME(LOC) 5S 1L; GLUCOSE,POINT OF CARE 183 MG/DL (70-110)
[2017-03-13] MEDS ORDERED: AMLO2.5T PO (14:50)
[2017-03-13] MEDS ORDERED: INSU100V12 SQ (14:50)
[2017-03-13] MEDS ORDERED: HYDR-2924 PO (14:50)
[2017-03-13] MEDS ORDERED: NACL1 PO (14:51)
[2017-03-13] MEDS ORDERED: PANT40TA25 PO (14:51)
[2017-03-13 15:18] VITALS: BP 162/66
[2017-03-13 18:51] VITALS: BP 146/54
[2017-03-13] MEDS ORDERED: APIXABAN 2.5 MG TABLET PO SCH (21:00)
[2017-03-15 08:08] LABS: GLUCOMETER DEV NAME(LOC) 5S 1L; GLUCOSE,POINT OF CARE 156 MG/DL (70-110)
[2017-03-15 20:07] LABS: GLUCOMETER DEV NAME(LOC) 5S 2N; GLUCOSE,POINT OF CARE 162 MG/DL (70-110)
== END 2017-03-13 18:10 | DRG 300 ==
LOC: EMS 17:28 → 5S 19:33
PROVIDERS: ADMIT Hospitalist; ATTEND Hospitalist
PROC: 4B02XSZ Measurement of Cardiac Pacemaker, External Approach (ICD-10-PCS; principal; 2017-03-05)
DX: E11.52 Type 2 diabetes mellitus with diabetic peripheral angiopathy with gangrene (principal); E44.0 Moderate protein-calorie malnutrition; E22.2 Syndrome of inappropriate secretion of antidiuretic hormone; E87.0 Hyperosmolality and hypernatremia; E11.621 Type 2 diabetes mellitus with foot ulcer; E11.65 Type 2 diabetes mellitus with hyperglycemia; E87.5 Hyperkalemia; I48.0 Paroxysmal atrial fibrillation; E87.8 Other disorders of electrolyte and fluid balance, not elsewhere classified; I50.9 Heart failure, unspecified; K21.9 Gastro-esophageal reflux disease without esophagitis; I25.10 Atherosclerotic heart disease of native coronary artery without angina pectoris; D50.8 Other iron deficiency anemias; E03.9 Hypothyroidism, unspecified; E87.6 Hypokalemia; J44.9 Chronic obstructive pulmonary disease, unspecified; L97.529 Non-pressure chronic ulcer of other part of left foot with unspecified severity; I11.0 Hypertensive heart disease with heart failure; D64.9 Anemia, unspecified; F41.9 Anxiety disorder, unspecified; Z79.82 Long term (current) use of aspirin; Z79.899 Other long term (current) drug therapy; Z83.3 Family history of diabetes mellitus; Z82.49 Family history of ischemic heart disease and other diseases of the circulatory system; Z95.0 Presence of cardiac pacemaker; Z90.710 Acquired absence of both cervix and uterus; Z90.49 Acquired absence of other specified parts of digestive tract; Z79.51 Long term (current) use of inhaled steroids; Z79.4 Long term (current) use of insulin; Z68.21 Body mass index [BMI] 21.0-21.9, adult; Z79.01 Long term (current) use of anticoagulants; Z79.02 Long term (current) use of antithrombotics/antiplatelets; Z88.5 Allergy status to narcotic agent; Z88.0 Allergy status to penicillin
CPT/HCPCS: 82270; 82533; 82607; 82962; 83540; 83550; 83735; 83935; 84100; 84295; 84300; 84439; 84443; 84481; 93005; 93306; 93971; 96360; 97116; 97162; 97530; 99285; J1170; J3475; J3490; J3535; J7030; J7060